=== PATIENT | male | born 1935 | race Caucasian/White ===

== ENCOUNTER → 2017-04-22 | Outpatient (CLI) | payer MEDICARE, OTHER | END | disposition home or self-care (01) | LOC: LAB 08:04 | PROVIDERS: ATTEND Internal Medicine Cardiovascular Disease | DX: E29.1 Testicular hypofunction (principal); R97.20 Elevated prostate specific antigen [PSA]; E55.9 Vitamin D deficiency, unspecified | CPT/HCPCS: 36415; 82306; 84153; 84403 ==

== ENCOUNTER 2018-02-06 18:07 | Inpatient (IN) | payer MEDICARE ==
[~2018-02-06] VITALS: Ht 172.7 cm; Wt 90.5 kg
[2018-02-06 18:53] LABS: Basophils # (auto) 0 uL; Basophils % (auto) 0.6 % (0.0-2.0); Eosinophils # (auto) 0 uL; Eosinophils % (auto) 0.8 % (0.0-7.0); Hematocrit 45.4 % (41.0-53.0); Hemoglobin 15.8 g/dL (13.5-17.5); Lymphocytes # (auto) 0.6 uL; Lymphocytes % (auto) 10.1 % (10.0-50.0); Mean Corpuscular Hemoglobin 33.6 pg (28.0-32.0); Mean Corpuscular Hgb Conc. 34.8 g/dL (32.0-36.0); Mean Corpuscular Volume 96.4 fL (80.0-100.0); Monocytes # (auto) 0.5 uL; Monocytes % (auto) 8.4 % (0.0-12.0); Neutrophils # (auto) 4.6 uL; Neutrophils % (auto) 80.1 % (37.0-80.0); Platelet Count (auto) 227 10^3/uL (140-450); Red Blood Cells 4.71 10^6/uL (4.5-5.90); Red Cell Distribution Width 15.7 % (11.8-14.3); White Blood Cell 5.7 10^3/uL (4.4-10.8)
[2018-02-06 19:05] LABS: Albumin 3.9 g/dL (3.4-5.0); Calcium 9.3 mg/dL (8.5-10.1)
[2018-02-06 19:10] LABS: BUN/Creatinine Ratio 15.7; Bilirubin, Total 1.2 mg/dL (0.2-1.0); Total Protein 8.2 g/dL (6.4-8.2)
[2018-02-06] MEDS ORDERED: SODIUM CHLORIDE 0.9% 500 ML IV ONE (19:39)
[2018-02-06 19:57] LABS: Potassium 2.4 mmol/L (3.5-5.1)
[2018-02-06 20:43] LABS: INR 0.99 (0.9-1.15); Partial Thromboplastin Time 27.3 sec (23.78-33.04); Prothrombin Time 10.6 sec (9.27-12.13)
[2018-02-06] MEDS: POTASSIUM CHL 20MEQ/100ML 100 ML IV SCH ×2 (21:06→22:59)
[2018-02-06] MEDS ORDERED: MAGNESIUM CITRATE SOLUTION 300 ML BTL PO ONE ×2 (21:15→21:45)
[2018-02-06] MEDS ORDERED: cefTRIAXone 1GM/50ML D5W 50 ML IV ONE ×2 (21:15→21:45)
[2018-02-06] MEDS ORDERED: POTA10TA51 PO (23:58)
[2018-02-06] MEDS ORDERED: NIFE60TA59 PO (23:58)
[2018-02-06] MEDS ORDERED: LEV50T PO (23:58)
[2018-02-06] MEDS ORDERED: ATOR20TA PO (23:58)
[2018-02-06] MEDS ORDERED: HYDR12.527 PO (23:58)
[2018-02-07] VITALS (35 sets, daily range): BP systolic 101–181; BP diastolic 54–103
[2018-02-07] MEDS ORDERED: metroNIDAZOLE 500MG/100ML 100 ML IV SCH
[2018-02-07] MEDS: metroNIDAZOLE 500MG/100ML 100 ML IV SCH ×4 (00:48→18:39)
[2018-02-07 06:24] LABS: Basophils # (auto) 0 uL; Basophils % (auto) 0.3 % (0.0-2.0); Eosinophils # (auto) 0 uL; Eosinophils % (auto) 0.5 % (0.0-7.0); Hematocrit 39.6 % (41.0-53.0); Hemoglobin 13.8 g/dL (13.5-17.5); Lymphocytes # (auto) 0.7 uL; Mean Corpuscular Hemoglobin 33.4 pg (28.0-32.0); Mean Corpuscular Volume 95.5 fL (80.0-100.0); Monocytes # (auto) 0.5 uL; Monocytes % (auto) 12.8 % (0.0-12.0); Neutrophils # (auto) 2.9 uL; Neutrophils % (auto) 69.4 % (37.0-80.0); Platelet Count (auto) 194 10^3/uL (140-450); Red Blood Cells 4.14 10^6/uL (4.5-5.90); Red Cell Distribution Width 15.7 % (11.8-14.3); White Blood Cell 4.2 10^3/uL (4.4-10.8)
[2018-02-07 06:34] LABS: Albumin 3.2 g/dL (3.4-5.0); Calcium 8.3 mg/dL (8.5-10.1)
[2018-02-07 06:36] LABS: BUN/Creatinine Ratio 21.3; INR 1.01 (0.9-1.15); Partial Thromboplastin Time 27.3 sec (23.78-33.04); Prothrombin Time 10.8 sec (9.27-12.13)
[2018-02-07 06:45] LABS: Potassium 2.1 mmol/L (3.5-5.1)
[2018-02-07] MEDS ORDERED: SODIUM CHL 0.9% IV ONE (08:15)
[2018-02-07] MEDS ORDERED: ONDANSETRON HCL 4 MG/2 ML VIAL IV PRN (08:15)
[2018-02-07] MEDS ORDERED: MAGNESIUM CITRATE SOLUTION 300 ML BTL PO ONE (08:15)
[2018-02-07] MEDS ORDERED: POTASSIUM CHLORIDE IV ONE ×3 (08:15→20:30)
[2018-02-07] MEDS ORDERED: LIDOCAINE 1% IV ONE ×3 (08:15→20:30)
[2018-02-07] MEDS ORDERED: NS 0.9% IV ONE ×2 (08:30→20:30)
[2018-02-07] MEDS ORDERED: GASTROGRAFIN 120 ML SOL ONE (09:16)
[2018-02-07] MEDS ORDERED: PNEUMOCOCCAL VACC POLYS 25 MCG/0.5 ML VIAL IM ONE (10:00)
[2018-02-07] MEDS ORDERED: PROMETHAZINE HCL 25 MG/ML 1ML IV PRN (11:45)
[2018-02-07] MEDS ORDERED: D5W/SOD CHL 0.45%/KCL 40MEQ 1,000 ML IV SCH (12:45)
[2018-02-07] MEDS ORDERED: MEPERIDINE HCL (50 MG/ML) 1 ML VIAL ONE (14:58)
[2018-02-07] MEDS ORDERED: fentaNYL CITRATE 100 MCG/2 ML VL ONE (14:58)
[2018-02-07] MEDS ORDERED: SUCCINYLCHOLINE CHLORIDE 20 MG/ML 10ML VIAL IV ONE (14:58)
[2018-02-07] MEDS ORDERED: ETOMIDATE (2MG/ML) 20ML VIAL IV ONE (14:59)
[2018-02-07] MEDS ORDERED: DEXAMETHASONE SOD PHOS 10MG/1ML VIAL INJ ONE (14:59)
[2018-02-07] MEDS ORDERED: MIDAZOLAM HCL 1MG/1ML-2 ML VIAL ONE (15:09)
[2018-02-07] MEDS ORDERED: ROCURONIUM 10MG/ML 10ML VIAL IV ONE (15:36)
[2018-02-07] MEDS ORDERED: LEVOFLOXACIN 500MG 100 ML IV ONE (15:37)
[2018-02-07] MEDS ORDERED: MIDAZOLAM HCL 1MG/1ML-2 ML VIAL IV PRN ×2 (16:30→17:15)
[2018-02-07] MEDS: D5W/SOD CHL 0.45%/KCL 40MEQ 1,000 ML IV SCH (16:45)
[2018-02-07] MEDS ORDERED: HYDROmorphone HCL 2 MG/ML VL ONE (16:46)
[2018-02-07] MEDS ORDERED: MIDAZOLAM DRIP 50 mg/50mL 50 ML IV ONE (16:51)
[2018-02-07] MEDS ORDERED: MIDAZOLAM DRIP 50 mg/50mL 50 ML IV SCH (17:00)
[2018-02-07] MEDS ORDERED: fentaNYL Drip 2500mCg/250mlNS 250 ML IV SCH (17:00)
[2018-02-07] MEDS ORDERED: MORPHINE SULFATE 4 MG/ML SYR/VIAL IV PRN (17:15)
[2018-02-07] MEDS ORDERED: LABETALOL HCL 5 MG/ML 4ML SYRINGE IV PRN (17:15)
[2018-02-07] MEDS ORDERED: KETOROLAC TROMETH 30 MG/ML 1ML VIAL IV ONE (17:15)
[2018-02-07] MEDS ORDERED: ePHEDrine SULFATE 50 MG/ML AMP IV PRN (17:15)
[2018-02-07] MEDS ORDERED: ONDANSETRON HCL 4 MG/2 ML VIAL IV ONE (17:15)
[2018-02-07] MEDS ORDERED: HYDROmorphone HCL 2 MG/ML VL IV PRN (17:15)
[2018-02-07] MEDS ORDERED: MORPHINE SULFATE 4 MG/ML SYR/VIAL IV ONE (18:00)
[2018-02-07] MEDS: PIPERACILLIN-TAZO 4.5GM 100 ML IV SCH (21:25)
[2018-02-07 22:54] LABS: Urine Bacteria NONE SEEN /hpf (None Seen); Urine Blood 1+ /uL (Negative); Urine Specific Gravity 1.016 (1.001-1.035); Urine WBC 12 /hpf (0 - 3)
[2018-02-08] VITALS (74 sets, daily range): BP systolic 97–185; BP diastolic 45–104
[2018-02-08] MEDS: metroNIDAZOLE 500MG/100ML 100 ML IV SCH ×5 (00:06→23:58)
[2018-02-08] MEDS ORDERED: VENLAFAXINE HCL 37.5mg XR cap PO SCH (00:15)
[2018-02-08 04:30] LABS: Basophils # (auto) 0 uL; Basophils % (auto) 0.1 % (0.0-2.0); Eosinophils # (auto) 0 uL; Hematocrit 36.3 % (41.0-53.0); Hemoglobin 12.5 g/dL (13.5-17.5); Lymphocytes # (auto) 0.3 uL; Lymphocytes % (auto) 4.7 % (10.0-50.0); Mean Corpuscular Hemoglobin 33.1 pg (28.0-32.0); Mean Corpuscular Hgb Conc. 34.6 g/dL (32.0-36.0); Mean Corpuscular Volume 95.8 fL (80.0-100.0); Monocytes # (auto) 0.3 uL; Monocytes % (auto) 5.5 % (0.0-12.0); Neutrophils # (auto) 5.6 uL; Neutrophils % (auto) 89.7 % (37.0-80.0); Platelet Count (auto) 169 10^3/uL (140-450); Red Blood Cells 3.79 10^6/uL (4.5-5.90); Red Cell Distribution Width 16.3 % (11.8-14.3); White Blood Cell 6.2 10^3/uL (4.4-10.8)
[2018-02-08 04:51] LABS: Albumin 2.5 g/dL (3.4-5.0); Calcium 7.8 mg/dL (8.5-10.1); Potassium 3.2 mmol/L (3.5-5.1)
[2018-02-08 04:53] LABS: BUN/Creatinine Ratio 20.2
[2018-02-08 04:55] LABS: Bilirubin, Total 0.9 mg/dL (0.2-1.0); Total Protein 5.9 g/dL (6.4-8.2)
[2018-02-08] MEDS: PIPERACILLIN-TAZO 4.5GM 100 ML IV SCH ×3 (05:21→21:34)
[2018-02-08] MEDS: D5W/SOD CHL 0.45%/KCL 40MEQ 1,000 ML IV SCH ×3 (05:21→17:37)
[2018-02-08] MEDS ORDERED: POTASSIUM CHL 20MEQ/100ML 200 ML IV ONE (05:56)
[2018-02-08] MEDS: POTASSIUM CHL 20MEQ/100ML 100 ML IV SCH ×5 (06:08→16:53)
[2018-02-08] MEDS ORDERED: LEVOFLOXACIN 500MG 100 ML IV SCH (10:00)
[2018-02-08] MEDS: HYDROmorphone HCL 2 MG/ML VL IV PRN ×2 (21:11→23:58)
[2018-02-09] VITALS (79 sets, daily range): BP systolic 98–180; BP diastolic 49–97
[2018-02-09 04:13] LABS: Calcium 8.4 mg/dL (8.5-10.1)
[2018-02-09 04:15] LABS: BUN/Creatinine Ratio 11.5
[2018-02-09] MEDS: HYDROmorphone HCL 2 MG/ML VL IV PRN ×4 (04:38→22:03)
[2018-02-09 04:54] LABS: Potassium 2.6 mmol/L (3.5-5.1)
[2018-02-09] MEDS ORDERED: POTASSIUM CHL 20MEQ/100ML 100 ML IV ONE (05:35)
[2018-02-09] MEDS: metroNIDAZOLE 500MG/100ML 100 ML IV SCH ×3 (05:37→17:50)
[2018-02-09] MEDS: D5W/SOD CHL 0.45%/KCL 40MEQ 1,000 ML IV SCH ×2 (05:37→18:30)
[2018-02-09] MEDS: PIPERACILLIN-TAZO 4.5GM 100 ML IV SCH ×3 (05:37→22:04)
[2018-02-09] MEDS: POTASSIUM CHL 20MEQ/100ML 100 ML IV SCH ×4 (05:52→10:00)
[2018-02-09] MEDS ORDERED: POTASSIUM CHL 20 Meq TABLET PO ONE ×4 (13:30→18:45)
[2018-02-09] MEDS ORDERED: POTASSIUM CHL 20MEQ/100ML 100 ML IV SCH (14:00)
[2018-02-10] VITALS (22 sets, daily range): BP systolic 94–156; BP diastolic 44–115
[2018-02-10] MEDS: metroNIDAZOLE 500MG/100ML 100 ML IV SCH ×5 (01:00→23:50)
[2018-02-10] MEDS: D5W/SOD CHL 0.45%/KCL 40MEQ 1,000 ML IV SCH ×2 (02:10→13:07)
[2018-02-10 04:00] LABS: Basophils # (auto) 0 uL; Basophils % (auto) 0.5 % (0.0-2.0); Eosinophils # (auto) 0.1 uL; Eosinophils % (auto) 1.7 % (0.0-7.0); Hematocrit 35.7 % (41.0-53.0); Hemoglobin 12.1 g/dL (13.5-17.5); Lymphocytes # (auto) 0.7 uL; Lymphocytes % (auto) 12.6 % (10.0-50.0); Mean Corpuscular Hemoglobin 33.1 pg (28.0-32.0); Mean Corpuscular Hgb Conc. 34.1 g/dL (32.0-36.0); Mean Corpuscular Volume 97.2 fL (80.0-100.0); Monocytes # (auto) 0.3 uL; Monocytes % (auto) 5.2 % (0.0-12.0); Neutrophils # (auto) 4.3 uL; Nucleated Red Blood Cells % 0.1 %; Platelet Count (auto) 152 10^3/uL (140-450); Red Blood Cells 3.67 10^6/uL (4.5-5.90); Red Cell Distribution Width 16.7 % (11.8-14.3); White Blood Cell 5.4 10^3/uL (4.4-10.8)
[2018-02-10 04:22] LABS: Albumin 2.2 g/dL (3.4-5.0); Magnesium 2.1 mg/dL (1.6-2.6); Potassium 3.1 mmol/L (3.5-5.1)
[2018-02-10 04:26] LABS: BUN/Creatinine Ratio 8.2; Bilirubin, Total 0.9 mg/dL (0.2-1.0); Total Protein 5.4 g/dL (6.4-8.2)
[2018-02-10] MEDS: PIPERACILLIN-TAZO 4.5GM 100 ML IV SCH (06:53)
[2018-02-10] MEDS: LEVOTHYROXINE SODIUM 50 MCG TAB PO SCH (06:54)
[2018-02-10] MEDS: HYDROmorphone HCL 2 MG/ML VL IV PRN ×5 (09:23→23:03)
[2018-02-10] MEDS: PIPERACILLIN-TAZOB 3.375GM 100 ML IV SCH ×3 (09:26→20:14)
[2018-02-10] MEDS: POTASSIUM CHL 20MEQ/100ML 100 ML IV SCH ×4 (12:34→21:09)
[2018-02-10] MEDS ORDERED: TIMOLOL MAL 0.5% OPTH(EYE) SOL 5ML EACHEYE ONE (15:30)
[2018-02-10] MEDS ORDERED: LIDOCAINE 1% (LOCAL ANESTH.) PF 5ml SDV ID ONE (15:45)
[2018-02-10] MEDS: ACETAMINOPHEN 650 mg PER 20 mL UD GT PRN (17:15)
[2018-02-10 20:03] LABS: Urine Bacteria NONE SEEN /hpf (None Seen); Urine Blood 1+ /uL (Negative); Urine Hyaline Cast FEW /lpf (0 - 2); Urine Mucus FEW (None Seen); Urine Specific Gravity 1.009 (1.001-1.035); Urine WBC 1 /hpf (0 - 3)
[2018-02-10] MEDS: SODIUM CHLOR 0.9% PF (SALINE LOCK) 10ML VIAL/SYR IV SCH (21:57)
[2018-02-10] MEDS: LATANOPROST 0.005 % OPTH(EYE) SOL 2.5ML EACHEYE SCH (22:27)
[2018-02-11] VITALS (20 sets, daily range): BP systolic 79–156; BP diastolic 49–91
[2018-02-11] MEDS: D5W/SOD CHL 0.45%/KCL 40MEQ 1,000 ML IV SCH ×2 (01:00→11:05)
[2018-02-11] MEDS: PIPERACILLIN-TAZOB 3.375GM 100 ML IV SCH ×4 (01:39→20:21)
[2018-02-11 04:15] LABS: Albumin 2.3 g/dL (3.4-5.0); Calcium 7.8 mg/dL (8.5-10.1); Potassium 3.1 mmol/L (3.5-5.1)
[2018-02-11 04:16] LABS: Basophils # (auto) 0 uL; Basophils % (auto) 0.9 % (0.0-2.0); Eosinophils # (auto) 0 uL; Eosinophils % (auto) 0.7 % (0.0-7.0); Hematocrit 34.7 % (41.0-53.0); Lymphocytes # (auto) 0.4 uL; Lymphocytes % (auto) 16.1 % (10.0-50.0); Mean Corpuscular Hemoglobin 33.8 pg (28.0-32.0); Mean Corpuscular Hgb Conc. 34.5 g/dL (32.0-36.0); Mean Corpuscular Volume 97.9 fL (80.0-100.0); Monocytes # (auto) 0.4 uL; Monocytes % (auto) 13.9 % (0.0-12.0); Neutrophils # (auto) 1.8 uL; Neutrophils % (auto) 68.4 % (37.0-80.0); Nucleated Red Blood Cells % 0.1 %; Platelet Count (auto) 130 10^3/uL (140-450); Red Blood Cells 3.54 10^6/uL (4.5-5.90); Red Cell Distribution Width 16.4 % (11.8-14.3); White Blood Cell 2.7 10^3/uL (4.4-10.8)
[2018-02-11 04:17] LABS: BUN/Creatinine Ratio 7.7
[2018-02-11 04:19] LABS: Bilirubin, Total 0.4 mg/dL (0.2-1.0); Total Protein 5.6 g/dL (6.4-8.2)
[2018-02-11] MEDS: HYDROmorphone HCL 2 MG/ML VL IV PRN ×2 (04:38→08:38)
[2018-02-11] MEDS: metroNIDAZOLE 500MG/100ML 100 ML IV SCH ×3 (05:42→18:15)
[2018-02-11] MEDS: LEVOTHYROXINE SODIUM 50 MCG TAB PO SCH (07:03)
[2018-02-11] MEDS: TIMOLOL MAL 0.5% OPTH(EYE) SOL 5ML EACHEYE SCH (10:01)
[2018-02-11] MEDS: SODIUM CHLOR 0.9% PF (SALINE LOCK) 10ML VIAL/SYR IV SCH ×2 (10:02→22:12)
[2018-02-11] MEDS: POTASSIUM CHL 20MEQ/100ML 100 ML IV SCH ×4 (12:15→22:12)
[2018-02-11] MEDS: SOD CHL 0.9%/ KCL 40MEQ 1,000 ML IV SCH (15:03)
[2018-02-11] MEDS ORDERED: CHOLESTYRAMINE 4 GM POWDER PO ONE (16:00)
[2018-02-11] MEDS: KETOROLAC TROMETH 30 MG/ML 1ML VIAL IV PRN (17:27)
[2018-02-11] MEDS: LATANOPROST 0.005 % OPTH(EYE) SOL 2.5ML EACHEYE SCH (22:14)
[2018-02-12] MEDS: POTASSIUM CHL 20MEQ/100ML 100 ML IV SCH ×2 (00:09→02:00)
[2018-02-12] MEDS: metroNIDAZOLE 500MG/100ML 100 ML IV SCH ×3 (00:09→11:59)
[2018-02-12] MEDS: KETOROLAC TROMETH 30 MG/ML 1ML VIAL IV PRN (01:23)
[2018-02-12] MEDS: PIPERACILLIN-TAZOB 3.375GM 100 ML IV SCH ×4 (02:00→20:13)
[2018-02-12 05:00] VITALS: BP 157/94
[2018-02-12] MEDS: LEVOTHYROXINE SODIUM 50 MCG TAB PO SCH (05:40)
[2018-02-12 08:00] VITALS: BP 125/85
[2018-02-12] MEDS: NIFEdipine ER 30 MG TAB PO SCH (09:22)
[2018-02-12] MEDS: CHOLESTYRAMINE 4 GM POWDER GT SCH (09:23)
[2018-02-12] MEDS: HCTZ 25 MG TAB PO SCH (09:23)
[2018-02-12] MEDS: SODIUM CHLOR 0.9% PF (SALINE LOCK) 10ML VIAL/SYR IV SCH ×2 (09:23→22:00)
[2018-02-12] MEDS: TIMOLOL MAL 0.5% OPTH(EYE) SOL 5ML EACHEYE SCH (09:24)
[2018-02-12] MEDS: SOD CHL 0.9%/ KCL 40MEQ 1,000 ML IV SCH (09:25)
[2018-02-12 12:00] VITALS: BP 125/79
[2018-02-12 19:11] VITALS: BP 114/72
[2018-02-12] MEDS: LATANOPROST 0.005 % OPTH(EYE) SOL 2.5ML EACHEYE SCH (20:41)
[2018-02-12] MEDS: ACETAMINOPHEN 650 mg PER 20 mL UD GT PRN (20:44)
[2018-02-12 22:00] VITALS: BP 124/72
[2018-02-13] MEDS: PIPERACILLIN-TAZOB 3.375GM 100 ML IV SCH ×3 (02:09→13:34)
[2018-02-13] MEDS: SOD CHL 0.9%/ KCL 40MEQ 1,000 ML IV SCH (04:30)
[2018-02-13 05:00] VITALS: BP 146/84
[2018-02-13] MEDS: LEVOTHYROXINE SODIUM 50 MCG TAB PO SCH (05:51)
[2018-02-13 06:57] LABS: Basophils # (auto) 0 uL; Basophils % (auto) 0.9 % (0.0-2.0); Eosinophils # (auto) 0.1 uL; Eosinophils % (auto) 4.8 % (0.0-7.0); Hematocrit 36.3 % (41.0-53.0); Hemoglobin 12.6 g/dL (13.5-17.5); Lymphocytes # (auto) 0.7 uL; Lymphocytes % (auto) 25.9 % (10.0-50.0); Mean Corpuscular Hemoglobin 33.7 pg (28.0-32.0); Mean Corpuscular Hgb Conc. 34.9 g/dL (32.0-36.0); Mean Corpuscular Volume 96.8 fL (80.0-100.0); Monocytes # (auto) 0.3 uL; Monocytes % (auto) 12.3 % (0.0-12.0); Neutrophils # (auto) 1.6 uL; Neutrophils % (auto) 56.1 % (37.0-80.0); Nucleated Red Blood Cells % 0.1 %; Platelet Count (auto) 142 10^3/uL (140-450); Red Blood Cells 3.75 10^6/uL (4.5-5.90); Red Cell Distribution Width 16.1 % (11.8-14.3); White Blood Cell 2.8 10^3/uL (4.4-10.8)
[2018-02-13 07:17] LABS: Albumin 2.2 g/dL (3.4-5.0); Calcium 7.7 mg/dL (8.5-10.1)
[2018-02-13 07:22] LABS: BUN/Creatinine Ratio 10.3; Bilirubin, Total 0.5 mg/dL (0.2-1.0); Total Protein 5.4 g/dL (6.4-8.2)
[2018-02-13 08:47] VITALS: BP 112/74
[2018-02-13] MEDS: TIMOLOL MAL 0.5% OPTH(EYE) SOL 5ML EACHEYE SCH (09:24)
[2018-02-13] MEDS: NIFEdipine ER 30 MG TAB PO SCH (09:24)
[2018-02-13] MEDS: SODIUM CHLOR 0.9% PF (SALINE LOCK) 10ML VIAL/SYR IV SCH (09:24)
[2018-02-13] MEDS: HCTZ 25 MG TAB PO SCH (09:24)
[2018-02-13] MEDS: CHOLESTYRAMINE 4 GM POWDER GT SCH (09:30)
[2018-02-13 12:43] VITALS: BP 153/94
[2018-02-13] MEDS ORDERED: POTASSIUM CHL 20 Meq TABLET PO ONE ×2 (14:00→16:00)
[2018-02-13 16:33] VITALS: BP 112/74
[2018-02-13 17:49] VITALS: BP 148/88
[2018-02-14] MEDS ORDERED: SPIRONOLACTONE 25 MG TAB PO SCH (10:00)
== END 2018-02-13 19:20 | disposition home or self-care (01) | DRG 853 ==
LOC: ER 18:07 → TELE 21:32 → TELE-WESTW 23:35 → ICU WEST 02-07 15:37 → EAST 02-11 18:35 → TELE-EAST 02-11 18:42
PROVIDERS: ADMIT Internal Medicine Cardiovascular Disease; ATTEND Internal Medicine Cardiovascular Disease
PROC: 5A1935Z Respiratory Ventilation, Less than 24 Consecutive Hours (ICD-10-PCS; 2018-02-07)
PROC: 0BH17EZ Insertion of Endotracheal Airway into Trachea, Via Natural or Artificial Opening (ICD-10-PCS; 2018-02-07)
PROC: 0YQ60ZZ Repair Left Inguinal Region, Open Approach (ICD-10-PCS; principal; 2018-02-07 14:55)
DX: A41.9 Sepsis, unspecified organism (principal); G93.41 Metabolic encephalopathy; K56.2 Volvulus; K40.30 Unilateral inguinal hernia, with obstruction, without gangrene, not specified as recurrent; E87.1 Hypo-osmolality and hyponatremia; E86.0 Dehydration; E87.6 Hypokalemia; I10 Essential (primary) hypertension; E78.5 Hyperlipidemia, unspecified; M19.90 Unspecified osteoarthritis, unspecified site; I95.9 Hypotension, unspecified; Z28.21 Immunization not carried out because of patient refusal
CPT/HCPCS: 36415; 36569; 36600; 71045; 74018; 74176; 74250; 80048; 80053; 81001; 82805; 83605; 83735; 83880; 84132; 84484; 85025; 85610; 85730; 86850; 86900; 86901; 87040; 87081; 87493; 93005; 94002; 94003; 96361; 96365; 96375; 97163; A6257; G0378; J0330; J0696; J1100; J1885; J1956; J2001; J2250; J2405; J2543; J3480; J3490

== ENCOUNTER → 2018-02-24 | Outpatient (CLI) | payer MEDICARE ==
[~2018-02-24] MED LIST: ATOR20TA PO; HYDR12.527 PO; LEV50T PO; NIFE60TA59 PO; POTA10TA51 PO
[2018-02-24 12:15] LABS: Basophils # (auto) 0.1 uL; Basophils % (auto) 1.2 % (0.0-2.0); Eosinophils # (auto) 0.1 uL; Eosinophils % (auto) 2.8 % (0.0-7.0); Hemoglobin 14.6 g/dL (13.5-17.5); Lymphocytes # (auto) 0.7 uL; Lymphocytes % (auto) 17.1 % (10.0-50.0); Mean Corpuscular Hemoglobin 33.9 pg (28.0-32.0); Mean Corpuscular Hgb Conc. 33.9 g/dL (32.0-36.0); Mean Corpuscular Volume 100.1 fL (80.0-100.0); Monocytes # (auto) 0.4 uL; Neutrophils # (auto) 2.9 uL; Neutrophils % (auto) 68.9 % (37.0-80.0); Nucleated Red Blood Cells % 0.1 %; Platelet Count (auto) 315 10^3/uL (140-450); Red Cell Distribution Width 16.6 % (11.8-14.3); White Blood Cell 4.2 10^3/uL (4.4-10.8)
[2018-02-24 12:22] LABS: Albumin 3.9 g/dL (3.4-5.0); Potassium 3.5 mmol/L (3.5-5.1)
[2018-02-24 12:28] LABS: BUN/Creatinine Ratio 19.5; Bilirubin, Direct 0.3 mg/dL (0-0.2); Bilirubin, Total 0.9 mg/dL (0.2-1.0); Calcium 9.3 mg/dL (8.5-10.1); Total Protein 8.1 g/dL (6.4-8.2)
== END | disposition home or self-care (01) ==
LOC: Rad HDHVI 10:28
PROVIDERS: ATTEND Internal Medicine Cardiovascular Disease
DX: M16.0 Bilateral primary osteoarthritis of hip (principal); E78.5 Hyperlipidemia, unspecified; E03.9 Hypothyroidism, unspecified; E55.9 Vitamin D deficiency, unspecified; E11.9 Type 2 diabetes mellitus without complications; D51.9 Vitamin B12 deficiency anemia, unspecified; K74.1 Hepatic sclerosis; I10 Essential (primary) hypertension; D64.9 Anemia, unspecified; C61 Malignant neoplasm of prostate
CPT/HCPCS: 36415; 74018; 80048; 80061; 80076; 82306; 83036; 84153; 84403; 84443; 85025

== ENCOUNTER → 2018-03-13 | Outpatient (CLI) | payer MEDICARE ==
[~2018-03-13] MED LIST changes: +TESTOSTERONE CYPIONATE 200 MG/ML 1ML VIAL IM ONE
[2018-03-13 09:13] VITALS: BP 149/79
--- NOTE | 2018-03-13 09:13 | NUR ---
CHF PT TO [facility]F CLINIC FOR MD REYES ORDERED TESTOSTERONE 200MG IM .
[2018-03-13 09:45] VITALS: BP 140/85
--- NOTE | 2018-03-13 09:45 | NUR ---
CHF Discharge Instructions See e-MAR for any mediations given with this visit. TESTOSTERONE 200MG IM R GLUTE. PT TOLERATED WELL. Patient education given on disease process. Patient verbalized understanding. Previous labs reviewed. Patient discharged in stable condition with after care instructions and follow up appointment.
== END | disposition home or self-care (01) ==
LOC: CHF HDHVI 09:14
PROVIDERS: ATTEND Internal Medicine Cardiovascular Disease
DX: E29.1 Testicular hypofunction (principal); M16.0 Bilateral primary osteoarthritis of hip; E03.9 Hypothyroidism, unspecified; K40.90 Unilateral inguinal hernia, without obstruction or gangrene, not specified as recurrent; R97.20 Elevated prostate specific antigen [PSA]; E55.9 Vitamin D deficiency, unspecified; K74.1 Hepatic sclerosis; C61 Malignant neoplasm of prostate; G93.41 Metabolic encephalopathy; H40.9 Unspecified glaucoma; D51.9 Vitamin B12 deficiency anemia, unspecified; A41.9 Sepsis, unspecified organism; I70.0 Atherosclerosis of aorta; E11.9 Type 2 diabetes mellitus without complications; Z79.01 Long term (current) use of anticoagulants
CPT/HCPCS: 96372; G0463; J1071

== ENCOUNTER → 2018-04-21 | Outpatient (CLI) | payer MEDICARE ==
[~2018-04-21] MED LIST changes: -TESTOSTERONE CYPIONATE 200 MG/ML 1ML VIAL IM ONE
[2018-04-21 12:42] LABS: BUN/Creatinine Ratio 17.9; Calcium 9.1 mg/dL (8.5-10.1); Potassium 3.4 mmol/L (3.5-5.1)
== END | disposition home or self-care (01) ==
LOC: LAB 11:07
PROVIDERS: ATTEND Internal Medicine Cardiovascular Disease
DX: I10 Essential (primary) hypertension (principal); E87.5 Hyperkalemia
CPT/HCPCS: 36415; 80048

== ENCOUNTER → 2018-05-02 | Outpatient (CLI) | payer MEDICARE ==
[2018-05-02 12:19] LABS: BUN/Creatinine Ratio 19.7; Calcium 8.6 mg/dL (8.5-10.1); Potassium 3.3 mmol/L (3.5-5.1)
== END | disposition home or self-care (01) ==
LOC: CHF HDHVI 09:21
PROVIDERS: ATTEND Internal Medicine Cardiovascular Disease
DX: I10 Essential (primary) hypertension (principal)
CPT/HCPCS: 36415; 80048

== ENCOUNTER → 2018-05-19 | Outpatient (CLI) | payer MEDICARE ==
[2018-05-19 12:24] LABS: Calcium 8.9 mg/dL (8.5-10.1); Potassium 3.5 mmol/L (3.5-5.1)
[2018-05-19 12:25] LABS: BUN/Creatinine Ratio 20.7
== END | disposition home or self-care (01) ==
LOC: LAB 09:07
PROVIDERS: ATTEND Internal Medicine Cardiovascular Disease
DX: E87.6 Hypokalemia (principal); I10 Essential (primary) hypertension
CPT/HCPCS: 36415; 80048

== ENCOUNTER → 2018-07-21 | Outpatient (CLI) | payer MEDICARE ==
[~2018-07-21] VITALS: Ht 172.7 cm; Wt 83.9 kg
[~2018-07-21] MED LIST changes: +ADENOSINE 70 MG in GIVE UN-DILUTED 0 ML IV ONE; +ADENOSINE 90 MG/30 ML INJ IV ONE
[2018-07-21 16:30] LABS: BUN/Creatinine Ratio 24.3; Calcium 9.4 mg/dL (8.5-10.1); Magnesium 2.7 mg/dL (1.6-2.6); Potassium 3.5 mmol/L (3.5-5.1)
== END | disposition home or self-care (01) ==
LOC: Rad HDHVI 08:28
PROVIDERS: ATTEND Internal Medicine Cardiovascular Disease
DX: I07.1 Rheumatic tricuspid insufficiency (principal); E03.9 Hypothyroidism, unspecified; D51.9 Vitamin B12 deficiency anemia, unspecified; I10 Essential (primary) hypertension; E87.6 Hypokalemia; E78.5 Hyperlipidemia, unspecified; E78.00 Pure hypercholesterolemia, unspecified; N28.9 Disorder of kidney and ureter, unspecified; I27.20 Pulmonary hypertension, unspecified; R00.2 Palpitations; Z79.899 Other long term (current) drug therapy
CPT/HCPCS: 36415; 78452; 80048; 82306; 83735; 93005; 93306; 96374; 96375; A9500; J0153

== ENCOUNTER → 2018-08-08 | Outpatient (CLI) | payer MEDICARE ==
[~2018-08-08] MED LIST changes: -ADENOSINE 70 MG in GIVE UN-DILUTED 0 ML IV ONE; -ADENOSINE 90 MG/30 ML INJ IV ONE; -HYDR12.527 PO; +HYDR12.55 PO
== END | disposition home or self-care (01) ==
LOC: LAB 08:50
PROVIDERS: ATTEND Internal Medicine Cardiovascular Disease
DX: E87.6 Hypokalemia (principal)
CPT/HCPCS: 36415; 84132

== ENCOUNTER → 2018-08-28 | Outpatient (CLI) | payer MEDICARE ==
[~2018-08-28] MED LIST changes: +HYDR12.527 PO; -HYDR12.55 PO
[2018-08-28 12:59] LABS: Magnesium 2.7 mg/dL (1.6-2.6); Potassium 3.5 mmol/L (3.5-5.1)
== END | disposition home or self-care (01) ==
LOC: LAB 08:52
PROVIDERS: ATTEND Internal Medicine Cardiovascular Disease
DX: E87.6 Hypokalemia (principal); E83.40 Disorders of magnesium metabolism, unspecified; I10 Essential (primary) hypertension
CPT/HCPCS: 36415; 83735; 84132

== ENCOUNTER → 2018-09-23 | Outpatient (CLI) | payer MEDICARE ==
[2018-09-23 13:00] LABS: Potassium 3.2 mmol/L (3.5-5.1)
[2018-09-23 13:04] LABS: BUN/Creatinine Ratio 21.8; Calcium 9.2 mg/dL (8.5-10.1)
== END | disposition home or self-care (01) ==
LOC: LAB 09:31
PROVIDERS: ATTEND Internal Medicine Cardiovascular Disease
DX: E87.6 Hypokalemia (principal)
CPT/HCPCS: 36415; 80048

== ENCOUNTER → 2018-10-06 | Outpatient (CLI) | payer MEDICARE ==
[~2018-10-06] MED LIST changes: -HYDR12.527 PO; +HYDR12.55 PO
== END | disposition home or self-care (01) ==
LOC: LAB 09:15
PROVIDERS: ATTEND Internal Medicine Cardiovascular Disease
DX: E87.6 Hypokalemia (principal)
CPT/HCPCS: 36415; 84132

== ENCOUNTER → 2018-11-05 | Outpatient (CLI) | payer MEDICARE ==
[~2018-11-05] VITALS: Ht 30.5 cm; Wt 0.5 kg
[~2018-11-05] MED LIST changes: +TESTOSTERONE CYPIONATE 200 MG/ML 1ML VIAL IM ONE
[2018-11-05 09:10] VITALS: BP 143/86
--- NOTE | 2018-11-05 09:10 | NUR ---
CHF PT IN CLINIC FOR TESTOSTERONE INJECTION. A/O X 3 0 DISTRESS, VSS
[2018-11-05 09:40] VITALS: BP 132/93
--- NOTE | 2018-11-05 09:40 | NUR ---
Discharge Instructions See e-MAR for any mediations given with this visit. Patient education given on disease process. Patient verbalized understanding. Previous labs reviewed. Patient discharged in stable condition with after care instructions and follow up appointment. MEDICATIONS TESTOSTERONE IM RIGHT GLUTE
[2018-11-05 11:43] LABS: BUN/Creatinine Ratio 16.9; Calcium 9.2 mg/dL (8.5-10.1); Potassium 3.6 mmol/L (3.5-5.1)
== END | disposition home or self-care (01) ==
LOC: CHF HDHVI 09:10
PROVIDERS: ATTEND Internal Medicine Cardiovascular Disease
DX: E29.1 Testicular hypofunction (principal); I10 Essential (primary) hypertension
CPT/HCPCS: 36415; 80048; 96372; G0463; J1071

== ENCOUNTER → 2018-11-20 | Outpatient (CLI) | payer MEDICARE ==
--- NOTE | 2018-11-20 08:55 | NUR ---
PT. TO CLINIC FOR IM INJECTION AND MED REC/ LAB REVIEW PER MD ORDER. ORDERS RECEIVED AND CARRIED OUT.
[2018-11-20 08:56] VITALS: BP 134/86
--- NOTE | 2018-11-20 09:32 | NUR ---
MEDS: PT. MEDICATED WITH TESTOSTERONE 200MG IM PER MD ORDER.
[2018-11-20 09:40] VITALS: BP 148/88
--- NOTE | 2018-11-20 09:45 | NUR ---
Discharge Instructions See e-MAR for any mediations given with this visit. Patient education given on disease process. Patient verbalized understanding. Previous labs reviewed. Patient discharged in stable condition with after care instructions and follow up appointment. PT. TO RTC 12/04/18 AT 0850 FOR LABS AND MEDS PER MD ORDER. RECENT ECHO AND LABS REVIEWED WITH PT, WHO ALSO HAD QUESTIONS REGARDING POSSIBLE MEDS FOR ED. PT. HAS APPT WITH DR. REYES ON 12/09 AND THIS RN WILL ASSIST PT. THROUGH THIS PASSAGE.
== END | disposition home or self-care (01) ==
LOC: CHF HDHVI 08:56
PROVIDERS: ATTEND Internal Medicine Cardiovascular Disease
DX: E29.1 Testicular hypofunction (principal); I10 Essential (primary) hypertension
CPT/HCPCS: 96372; G0463; J1071

== ENCOUNTER → 2018-12-04 | Outpatient (CLI) | payer MEDICARE ==
[~2018-12-04] MED LIST changes: -TESTOSTERONE CYPIONATE 200 MG/ML 1ML VIAL IM ONE
[2018-12-04 12:12] LABS: Eosinophils # (auto) 0.1 uL; Hemoglobin 16.2 g/dL (13.5-17.5); Lymphocytes # (auto) 0.9 uL; Monocytes # (auto) 0.3 uL; Neutrophils # (auto) 0.9 uL; White Blood Cell 2.3 10^3/uL (4.4-10.8)
[2018-12-04 12:15] LABS: Basophils # (auto) 0.1 uL; Basophils % (auto) 2.6 % (0.0-2.0); Eosinophils % (auto) 6.3 % (0.0-7.0); Hematocrit 47.8 % (41.0-53.0); Lymphocytes % (auto) 37.5 % (10.0-50.0); Mean Corpuscular Hemoglobin 34.1 pg (28.0-32.0); Mean Corpuscular Hgb Conc. 33.9 g/dL (32.0-36.0); Mean Corpuscular Volume 100.5 fL (80.0-100.0); Monocytes % (auto) 12.4 % (0.0-12.0); Neutrophils % (auto) 41.2 % (37.0-80.0); Nucleated Red Blood Cells % 0.2 %; Platelet Count (auto) 165 10^3/uL (140-450); Red Blood Cells 4.76 10^6/uL (4.5-5.90); Red Cell Distribution Width 15.6 % (11.8-14.3)
[2018-12-04 12:26] LABS: Potassium 3.9 mmol/L (3.5-5.1)
[2018-12-04 12:37] LABS: Albumin 3.7 g/dL (3.4-5.0); BUN/Creatinine Ratio 16.3; Bilirubin, Total 0.7 mg/dL (0.2-1.0); Calcium 8.8 mg/dL (8.5-10.1); Total Protein 7.3 g/dL (6.4-8.2)
== END | disposition home or self-care (01) ==
LOC: CHF HDHVI 09:03
PROVIDERS: ATTEND Internal Medicine Cardiovascular Disease
DX: D64.9 Anemia, unspecified (principal); E29.1 Testicular hypofunction; I10 Essential (primary) hypertension
CPT/HCPCS: 36415; 80053; 84403; 85025

== ENCOUNTER → 2019-01-02 | Outpatient (CLI) | payer MEDICARE ==
[2019-01-02 12:10] LABS: Calcium 8.8 mg/dL (8.5-10.1); Potassium 3.9 mmol/L (3.5-5.1)
== END | disposition home or self-care (01) ==
LOC: LAB 08:47
PROVIDERS: ATTEND Internal Medicine Cardiovascular Disease
DX: I10 Essential (primary) hypertension (principal)
CPT/HCPCS: 36415; 80048

== ENCOUNTER → 2019-02-02 | Outpatient (CLI) | payer MEDICARE ==
[2019-02-02 12:27] LABS: Potassium 3.9 mmol/L (3.5-5.1)
[2019-02-02 12:41] LABS: BUN/Creatinine Ratio 22.6; Calcium 8.8 mg/dL (8.5-10.1)
== END | disposition home or self-care (01) ==
LOC: LAB 09:04
PROVIDERS: ATTEND Internal Medicine Cardiovascular Disease
DX: E78.6 Lipoprotein deficiency (principal)
CPT/HCPCS: 36415; 80048

== ENCOUNTER → 2019-03-18 | Outpatient (CLI) | payer MEDICARE ==
[~2019-03-18] MED LIST changes: +NIFE1TAB30 PO; -NIFE60TA59 PO
== END | disposition home or self-care (01) ==
LOC: Rad HDHVI 12:50
PROVIDERS: ATTEND Internal Medicine Cardiovascular Disease
DX: I70.0 Atherosclerosis of aorta (principal); M41.80 Other forms of scoliosis, site unspecified; M54.5 Low back pain; M54.2 Cervicalgia; M25.511 Pain in right shoulder
CPT/HCPCS: 71046

== ENCOUNTER → 2019-04-02 | Outpatient (CLI) | payer MEDICARE ==
[~2019-04-02] VITALS: Ht 30.5 cm; Wt 0.5 kg
[~2019-04-02] MED LIST changes: +TESTOSTERONE CYPIONATE 200 MG/ML 1ML VIAL IM ONE
[2019-04-02 08:10] VITALS: BP 116/78
[2019-04-02 08:50] VITALS: BP 152/85
--- NOTE | 2019-04-02 08:50 | NUR ---
Discharge Instructions See e-MAR for any mediations given with this visit. Patient education given on disease process. Patient verbalized understanding. Previous labs reviewed. Patient discharged in stable condition with after care instructions and follow up appointment. MEDICATIONS TESTOSTERONE 200 MG IM RIGHT GLUTE LOT # [id number] EXP 06/29
[2019-04-02 12:10] LABS: BUN/Creatinine Ratio 16.4; Potassium 3.7 mmol/L (3.5-5.1)
== END | disposition home or self-care (01) ==
LOC: CHF HDHVI 08:11
PROVIDERS: ATTEND Internal Medicine Cardiovascular Disease
DX: E29.1 Testicular hypofunction (principal); I10 Essential (primary) hypertension
CPT/HCPCS: 36415; 80048; 96372; G0463; J1071

== ENCOUNTER → 2019-07-27 | Outpatient (CLI) | payer MEDICARE ==
[~2019-07-27] MED LIST changes: -TESTOSTERONE CYPIONATE 200 MG/ML 1ML VIAL IM ONE
[2019-07-27 12:05] LABS: Basophils # (auto) 0 10 ^3/uL (0-0.2); Basophils % (auto) 1.5 % (0.0-2.0); Eosinophils # (auto) 0.2 10 ^3/uL (0-0.8); Eosinophils % (auto) 7.5 % (0.0-7.0); Hematocrit 42.8 % (41.0-53.0); Hemoglobin 14.5 g/dL (13.5-17.5); Lymphocytes # (auto) 1.1 10 ^3/uL (0.4-5.4); Lymphocytes % (auto) 41.9 % (10.0-50.0); Mean Corpuscular Hemoglobin 32.8 pg (28.0-32.0); Mean Corpuscular Hgb Conc. 33.8 g/dL (32.0-36.0); Mean Corpuscular Volume 96.9 fL (80.0-100.0); Monocytes # (auto) 0.3 10 ^3/uL (0-1.3); Neutrophils % (auto) 38.1 % (37.0-80.0); Nucleated Red Blood Cells % 0.1 %; Platelet Count (auto) 160 10^3/uL (140-450); Red Blood Cells 4.42 10^6/uL (4.5-5.90); Red Cell Distribution Width 14.3 % (11.8-14.3); Urine Blood Negative /uL (Negative); Urine Specific Gravity 1.015 (1.001-1.035); White Blood Cell 2.6 10^3/uL (4.4-10.8)
[2019-07-27 12:22] LABS: Free T4 (Free Thyroxine) 1.35 ng/dL (0.89-1.76)
[2019-07-27 12:23] LABS: Potassium 3.5 mmol/L (3.5-5.1); Prostate Specific Antigen 1.68 ng/mL (0.0-4.0)
[2019-07-27 12:25] LABS: T3 Total 0.75 ng/mL (0.60-1.81)
[2019-07-27 12:38] LABS: Albumin 3.9 g/dL (3.4-5.0); BUN/Creatinine Ratio 20.9; Bilirubin, Total 0.8 mg/dL (0.2-1.0); Calcium 9.4 mg/dL (8.5-10.1); Total Protein 7.7 g/dL (6.4-8.2)
== END | disposition home or self-care (01) ==
LOC: LAB 08:13
PROVIDERS: ATTEND Internal Medicine Cardiovascular Disease
DX: E03.9 Hypothyroidism, unspecified (principal); K90.9 Intestinal malabsorption, unspecified; C61 Malignant neoplasm of prostate; E29.1 Testicular hypofunction; N39.0 Urinary tract infection, site not specified; I50.9 Heart failure, unspecified; D51.9 Vitamin B12 deficiency anemia, unspecified; Z79.899 Other long term (current) drug therapy
CPT/HCPCS: 36415; 80053; 80061; 81003; 82306; 82607; 83036; 83880; 84153; 84403; 84439; 84443; 84480; 85025

== ENCOUNTER → 2019-08-19 | Outpatient (CLI) | payer MEDICARE | END | disposition home or self-care (01) | LOC: Rad HDHVI 10:16 | PROVIDERS: ATTEND Internal Medicine Cardiovascular Disease | DX: M47.817 Spondylosis without myelopathy or radiculopathy, lumbosacral region (principal); M48.061 Spinal stenosis, lumbar region without neurogenic claudication; M25.78 Osteophyte, vertebrae; M41.86 Other forms of scoliosis, lumbar region; K40.90 Unilateral inguinal hernia, without obstruction or gangrene, not specified as recurrent; M16.0 Bilateral primary osteoarthritis of hip; M81.0 Age-related osteoporosis without current pathological fracture; M43.8X6 Other specified deforming dorsopathies, lumbar region; M47.818 Spondylosis without myelopathy or radiculopathy, sacral and sacrococcygeal region; N40.0 Benign prostatic hyperplasia without lower urinary tract symptoms; I67.82 Cerebral ischemia; I67.2 Cerebral atherosclerosis; I63.9 Cerebral infarction, unspecified | CPT/HCPCS: 70450; 72131; 72192 ==

== ENCOUNTER → 2019-08-28 | Outpatient (CLI) | payer MEDICARE | END | disposition home or self-care (01) | LOC: Rad HDHVI 09:52 | PROVIDERS: ATTEND Internal Medicine Cardiovascular Disease | DX: I10 Essential (primary) hypertension (principal); R00.2 Palpitations; R06.2 Wheezing | CPT/HCPCS: 93306 ==

== ENCOUNTER → 2019-09-04 | Outpatient (CLI) | payer MEDICARE ==
[~2019-09-04] VITALS: Ht 172.7 cm; Wt 78.9 kg
[~2019-09-04] MED LIST changes: +ADENOSINE 66 MG in GIVE UN-DILUTED 0 ML IV ONE; +ADENOSINE 90 MG/30 ML INJ IV ONE
== END | disposition home or self-care (01) ==
LOC: Rad HDHVI 08:56
PROVIDERS: ATTEND Internal Medicine Cardiovascular Disease
DX: I10 Essential (primary) hypertension (principal); E78.00 Pure hypercholesterolemia, unspecified; N40.0 Benign prostatic hyperplasia without lower urinary tract symptoms
CPT/HCPCS: 78452; 93005; 96374; 96375; A9500; J0153

== ENCOUNTER → 2019-10-13 | Emergency (ER) | payer MEDICARE ==
[~2019-10-13] VITALS: Ht 170.2 cm; Wt 81.6 kg
[~2019-10-13] MED LIST changes: -ADENOSINE 66 MG in GIVE UN-DILUTED 0 ML IV ONE; -ADENOSINE 90 MG/30 ML INJ IV ONE; +POTASSIUM EFFERVESENT TAB 25 MEQ PO ONE
[2019-10-13 09:27] LABS: Basophils # (auto) 0.1 10 ^3/uL (0-0.2); Basophils % (auto) 2.4 % (0.0-2.0); Eosinophils # (auto) 0.1 10 ^3/uL (0-0.8); Eosinophils % (auto) 2.9 % (0.0-7.0); Hematocrit 47.6 % (41.0-53.0); Hemoglobin 15.7 g/dL (13.5-17.5); Lymphocytes # (auto) 0.5 10 ^3/uL (0.4-5.4); Lymphocytes % (auto) 14.1 % (10.0-50.0); Mean Corpuscular Hemoglobin 32.8 pg (28.0-32.0); Mean Corpuscular Volume 99.5 fL (80.0-100.0); Monocytes # (auto) 0.3 10 ^3/uL (0-1.3); Monocytes % (auto) 7.7 % (0.0-12.0); Neutrophils # (auto) 2.7 10 ^3/uL (1.6-8.6); Neutrophils % (auto) 72.9 % (37.0-80.0); Nucleated Red Blood Cells % 0.7 %; Platelet Count (auto) 143 10^3/uL (140-450); Red Blood Cells 4.78 10^6/uL (4.5-5.90); Red Cell Distribution Width 14.6 % (11.8-14.3); White Blood Cell 3.7 10^3/uL (4.4-10.8)
[2019-10-13 10:23] LABS: Albumin 3.9 g/dL (3.4-5.0); Anion Gap 5 (5-15); Blood Urea Nitrogen 29 mg/dL (7-18); Calcium 9.1 mg/dL (8.5-10.1); Carbon Dioxide 30 mmol/L (21-32); Chloride 103 mmol/L (98-107); Glucose 98 mg/dL (74-106); Magnesium 2.7 mg/dL (1.6-2.6); Sodium 138 mmol/L (136-145)
[2019-10-13 10:29] LABS: Urine WBC None Seen /hpf (0 - 3)
[2019-10-13 10:31] LABS: Alanine Aminotransferase 19 U/L (16-61); Alkaline Phosphatase 76 U/L (45-117); Aspartate Aminotransferase 18 U/L (15-37); BUN/Creatinine Ratio 19.7; Bilirubin, Total 0.8 mg/dL (0.2-1.0); GFR African American 59 mL/min; GFR Non-African American 49 mL/min; Total Protein 7.7 g/dL (6.4-8.2)
[2019-10-13 10:38] LABS: Urine Bacteria FEW /hpf (None Seen); Urine Blood Negative /uL (Negative); Urine Specific Gravity 1.013 (1.001-1.035)
[2019-10-13 11:05] VITALS: BP 98/62
== END | disposition home or self-care (01) ==
LOC: EDUNIT# 07:17 → ER 07:27 → EDBD 07:27
DX: M25.552 Pain in left hip (principal); E87.6 Hypokalemia; M19.90 Unspecified osteoarthritis, unspecified site; E78.5 Hyperlipidemia, unspecified; I10 Essential (primary) hypertension; R42 Dizziness and giddiness
CPT/HCPCS: 36415; 70450; 71045; 73700; 80053; 81001; 83735; 84443; 84484; 85025; 93005

== ENCOUNTER → 2019-10-14 | Outpatient (CLI) | payer MEDICARE ==
[~2019-10-14] MED LIST changes: -POTASSIUM EFFERVESENT TAB 25 MEQ PO ONE
[2019-10-14 16:29] LABS: BUN/Creatinine Ratio 20.9; Calcium 9.6 mg/dL (8.5-10.1); Potassium 3.8 mmol/L (3.5-5.1)
== END | disposition home or self-care (01) ==
LOC: LAB 12:03
PROVIDERS: ATTEND Internal Medicine Cardiovascular Disease
DX: I10 Essential (primary) hypertension (principal)
CPT/HCPCS: 36415; 80048

== ENCOUNTER → 2019-10-19 | Outpatient (CLI) | payer MEDICARE ==
[2019-10-19 15:57] LABS: BUN/Creatinine Ratio 18.6; Calcium 8.9 mg/dL (8.5-10.1); Potassium 3.4 mmol/L (3.5-5.1)
== END | disposition home or self-care (01) ==
LOC: LAB 11:06
PROVIDERS: ATTEND Internal Medicine Cardiovascular Disease
DX: I10 Essential (primary) hypertension (principal)
CPT/HCPCS: 36415; 80048

== ENCOUNTER → 2019-10-30 | Outpatient (CLI) | payer MEDICARE ==
--- NOTE | 2019-10-30 08:15 | NUR ---
PT. TO CLINIC FOR LAB REDRAW AND PT. EDUCATION RE: HYPOKALEMIA AND MED REC CHANGES FOR B/P AND DIURETIC MEDS. PT. HAS BEEN TAKING PROVARDIA XL 90MG PRN WITH LAST DOSE 2 DAYS AGO FOR SBP> 180. PT. HAS TAKEN HYDROCHLOROTHIDONE LAST DOSE 3 DAYS AGO, FOR LEG SWELLING. THIS RN WILL CALL PT AFTER LAB RESULTS FOR MED REC CHANGES PER DR. REYES.
--- NOTE | 2019-10-30 08:40 | NUR ---
Discharge Instructions See e-MAR for any mediations given with this visit. Patient education given on disease process. Patient verbalized understanding. Previous labs reviewed. Patient discharged in stable condition with after care instructions and follow up appointment. THIS RN WILL CALL PT. LATER TODAY WITH RESULTS AND FURTHER ORDERS.
--- NOTE | 2019-10-30 16:30 | NUR ---
LABS: K+ RESULTS OF 3.[address] REYES WITH MED REC OF DIURETICS AND B/P MEDS REVIEWED WITH DR. REYES. PT. IS TO CONTINUE KDUR 20 MEQ TID, AND NEW RX FOR PROCARDIA 30MG XL Q DAY TO BE TAKEN.
--- NOTE | 2019-10-30 16:45 | NUR ---
LAB RESULTS CALLED TO PT. AND WITH INSTRUCTIONS TO TAKE 20 MEQ POTASSIUM TID OF WHICH 20 MEQ WILL BE IN POWDER FORM SAMPLES FROM DR. REYES THAT PT. HAS ON HAND. HOME HEALTH TO REDRAW K+ IN 10 DAYS. NEW RX FOR PROCARDIA 30MG XL CALLED IN TO [facility] [place] WITH INSTRUCTIONS TO PT. PT. ALSO TO DO DAILY WTS. AND JOURNAL THEM FOR MD FOLLOW UP. PT. UNDERSTANDS TO START PROCARDIA IN AM., AND WILL FOLLOW UP WITH CLINIC WITH ANY CONCERNS.
== END | disposition home or self-care (01) ==
LOC: LAB 08:38
PROVIDERS: ATTEND Internal Medicine Cardiovascular Disease
DX: E87.6 Hypokalemia (principal)
CPT/HCPCS: 36415; 84132; G0463

== ENCOUNTER → 2019-11-18 | Outpatient (CLI) | payer MEDICARE ==
[2019-11-18 16:00] LABS: BUN/Creatinine Ratio 21.8; Calcium 8.9 mg/dL (8.5-10.1); Potassium 4.5 mmol/L (3.5-5.1)
== END | disposition home or self-care (01) ==
LOC: LAB 12:55
PROVIDERS: ATTEND Internal Medicine Cardiovascular Disease
DX: E78.6 Lipoprotein deficiency (principal)
CPT/HCPCS: 36415; 80048

== ENCOUNTER → 2019-12-24 | Outpatient (CLI) | payer MEDICARE | END | disposition home or self-care (01) | LOC: LAB 09:43 | PROVIDERS: ATTEND Internal Medicine Cardiovascular Disease | DX: E87.6 Hypokalemia (principal) | CPT/HCPCS: 36415; 84132 ==

== ENCOUNTER → 2020-01-01 | Outpatient (CLI) | payer MEDICARE ==
[2020-01-01 11:48] LABS: Basophils # (auto) 0.1 10 ^3/uL (0-0.2); Eosinophils # (auto) 0.2 10 ^3/uL (0-0.8); Eosinophils % (auto) 5.6 % (0.0-7.0); Hematocrit 43.7 % (41.0-53.0); Hemoglobin 14.6 g/dL (13.5-17.5); Lymphocytes # (auto) 0.9 10 ^3/uL (0.4-5.4); Lymphocytes % (auto) 28.6 % (10.0-50.0); Mean Corpuscular Hemoglobin 32.4 pg (28.0-32.0); Mean Corpuscular Hgb Conc. 33.5 g/dL (32.0-36.0); Mean Corpuscular Volume 96.9 fL (80.0-100.0); Monocytes # (auto) 0.4 10 ^3/uL (0-1.3); Monocytes % (auto) 13.3 % (0.0-12.0); Neutrophils # (auto) 1.6 10 ^3/uL (1.6-8.6); Neutrophils % (auto) 50.5 % (37.0-80.0); Platelet Count (auto) 156 10^3/uL (140-450); Red Blood Cells 4.51 10^6/uL (4.5-5.90); Red Cell Distribution Width 14.7 % (11.8-14.3); White Blood Cell 3.1 10^3/uL (4.4-10.8)
[2020-01-01 12:08] LABS: Calcium 9.2 mg/dL (8.5-10.1); Potassium 4.2 mmol/L (3.5-5.1)
== END | disposition home or self-care (01) ==
LOC: LAB 10:57
PROVIDERS: ATTEND Internal Medicine Cardiovascular Disease
DX: I10 Essential (primary) hypertension (principal); D64.9 Anemia, unspecified
CPT/HCPCS: 36415; 80048; 85025

== ENCOUNTER 2020-01-07 07:53 | Inpatient (IN) | payer MEDICARE ==
[~2020-01-07] VITALS: Ht 172.7 cm; Wt 79.6 kg
[2020-01-07] MEDS ORDERED: ASPirin 81 mg TAB PO ONE (08:15)
[2020-01-07] MEDS ORDERED: NITROGLYCERIN 0.4 MG SL TAB SL ONE (08:15)
[2020-01-07 08:43] LABS: Basophils # (auto) 0.1 10 ^3/uL (0-0.2); Basophils % (auto) 2.6 % (0.0-2.0); Eosinophils # (auto) 0.3 10 ^3/uL (0-0.8); Eosinophils % (auto) 9.9 % (0.0-7.0); Hematocrit 44.8 % (41.0-53.0); Hemoglobin 14.9 g/dL (13.5-17.5); Lymphocytes # (auto) 0.9 10 ^3/uL (0.4-5.4); Lymphocytes % (auto) 34.4 % (10.0-50.0); Mean Corpuscular Hemoglobin 32.2 pg (28.0-32.0); Mean Corpuscular Hgb Conc. 33.2 g/dL (32.0-36.0); Mean Corpuscular Volume 96.7 fL (80.0-100.0); Monocytes # (auto) 0.3 10 ^3/uL (0-1.3); Monocytes % (auto) 11.8 % (0.0-12.0); Neutrophils # (auto) 1.1 10 ^3/uL (1.6-8.6); Neutrophils % (auto) 41.3 % (37.0-80.0); Nucleated Red Blood Cells % 0.1 %; Platelet Count (auto) 166 10^3/uL (140-450); Red Blood Cells 4.63 10^6/uL (4.5-5.90); Red Cell Distribution Width 15.2 % (11.8-14.3); White Blood Cell 2.6 10^3/uL (4.4-10.8)
[2020-01-07 08:59] LABS: INR 1.06 (0.9-1.15); Partial Thromboplastin Time 27.3 sec (23.0-31.2)
[2020-01-07 09:02] LABS: Albumin 3.4 g/dL (3.4-5.0)
[2020-01-07 09:08] LABS: BUN/Creatinine Ratio 17.6; Bilirubin, Total 0.6 mg/dL (0.2-1.0)
[2020-01-07] MEDS ORDERED: ENOXAPARIN SOD 80 MG/0.8ML SYRINGE SC ONE (09:30)
[2020-01-07] MEDS ORDERED: ACETAMINOPHEN 500 MG TAB PO PRN (11:30)
[2020-01-07] MEDS ORDERED: TEMAZEPAM 15 MG CAP PO PRN (11:30)
[2020-01-07] MEDS ORDERED: MORPHINE SULF INJ 2 MG/ML SYRINGE 1ML IV PRN (11:30)
[2020-01-07] MEDS ORDERED: LACTULOSE 20Gm/30ML SOLN PO PRN (11:30)
[2020-01-07] MEDS ORDERED: PROMETHAZINE HCL 25 MG/ML 1ML IV PRN (11:30)
[2020-01-07] MEDS ORDERED: NITROGLYCERIN 0.4 MG SL TAB SL PRN (11:30)
[2020-01-07] MEDS ORDERED: HEPARIN DRIP/D5W 100UNITS/ML 250 ML IV ONE (12:25)
[2020-01-07] MEDS ORDERED: HEPARIN DRIP/D5W 100UNITS/ML 250 ML IV SCH (12:30)
[2020-01-07] MEDS ORDERED: HEPARIN SODIUM (PORCINE) 5000 UNITS/ML 1ML VIAL IV ONE (12:30)
[2020-01-07] MEDS: SODIUM CHLORIDE 0.9% 1,000 ML IV SCH (13:12)
[2020-01-07] MEDS ORDERED: NIFEdipine ER 30 MG TAB PO ONE (16:45)
[2020-01-07 20:07] LABS: INR 1.13 (0.9-1.15)
[2020-01-07 20:14] LABS: Partial Thromboplastin Time 105.9 sec (23.0-31.2)
[2020-01-07] MEDS ORDERED: [UNRECOGNIZED DRUG - CODE] EACHEYE (21:46)
[2020-01-07] MEDS ORDERED: FINA5TAB4 PO (21:46)
[2020-01-07] MEDS ORDERED: LATA0.0020 EACHEYE (21:46)
[2020-01-07] MEDS ORDERED: CHLO50TA PO (21:46)
[2020-01-07] MEDS ORDERED: ENOXAPARIN SOD 80 MG/0.8ML SYRINGE SC SCH (22:00)
[2020-01-07] MEDS: FAMOTIDINE 20 MG TAB PO SCH (23:46)
[2020-01-07] MEDS: METOPROLOL TARTRATE 25 MG TAB PO SCH (23:47)
[2020-01-07] MEDS: ATORVASTATIN 20 MG TAB PO SCH (23:47)
[2020-01-08] MEDS: SODIUM CHLORIDE 0.9% 1,000 ML IV SCH ×2 (00:50→15:47)
[2020-01-08 04:01] LABS: Cholesterol 166 mg/dL (< 200)
[2020-01-08 04:04] LABS: HDL Cholesterol 48 mg/dL (40-59); LDL Cholesterol 101 mg/dL (< 100); Triglycerides 134 mg/dL (< 150)
[2020-01-08 04:54] LABS: INR 1.14 (0.9-1.15)
[2020-01-08 10:12] LABS: INR 1.09 (0.9-1.15); Partial Thromboplastin Time 47.3 sec (23.0-31.2)
[2020-01-08] MEDS: traMADol HCL 50 MG TAB PO PRN (10:20)
[2020-01-08] MEDS: METOPROLOL TARTRATE 25 MG TAB PO SCH ×3 (10:21→22:20)
[2020-01-08] MEDS: ASPirin 81 mg TAB PO SCH (10:21)
[2020-01-08] MEDS: NIFEdipine ER 30 MG TAB PO SCH (10:22)
[2020-01-08] MEDS: NITROGLYCERIN 0.2MG/HR TOPICAL PATCH TD SCH (10:23)
[2020-01-08] MEDS ORDERED: HEPARIN DRIP/D5W 100UNITS/ML 250 ML IV SCH (10:30)
[2020-01-08 19:22] LABS: INR 1.07 (0.9-1.15); Partial Thromboplastin Time 51.9 sec (23.0-31.2)
[2020-01-08] MEDS: ATORVASTATIN 20 MG TAB PO SCH (22:19)
[2020-01-08] MEDS: FAMOTIDINE 20 MG TAB PO SCH (22:19)
[2020-01-09 01:06] LABS: INR 1.13 (0.9-1.15); Partial Thromboplastin Time 44.2 sec (23.0-31.2)
[2020-01-09] MEDS: SODIUM CHLORIDE 0.9% 1,000 ML IV SCH ×2 (03:30→16:56)
[2020-01-09 06:28] LABS: Basophils # (auto) 0 10 ^3/uL (0-0.2); Basophils % (auto) 1.2 % (0.0-2.0); Eosinophils # (auto) 0.2 10 ^3/uL (0-0.8); Eosinophils % (auto) 6.2 % (0.0-7.0); Hematocrit 39.2 % (41.0-53.0); Hemoglobin 13.5 g/dL (13.5-17.5); Lymphocytes # (auto) 1.1 10 ^3/uL (0.4-5.4); Lymphocytes % (auto) 29.4 % (10.0-50.0); Mean Corpuscular Hemoglobin 33.1 pg (28.0-32.0); Mean Corpuscular Hgb Conc. 34.4 g/dL (32.0-36.0); Mean Corpuscular Volume 96.4 fL (80.0-100.0); Monocytes # (auto) 0.4 10 ^3/uL (0-1.3); Monocytes % (auto) 9.5 % (0.0-12.0); Neutrophils # (auto) 2.1 10 ^3/uL (1.6-8.6); Neutrophils % (auto) 53.7 % (37.0-80.0); Platelet Count (auto) 146 10^3/uL (140-450); Red Blood Cells 4.07 10^6/uL (4.5-5.90); Red Cell Distribution Width 15.4 % (11.8-14.3); White Blood Cell 3.9 10^3/uL (4.4-10.8)
[2020-01-09 06:41] LABS: INR 1.09 (0.9-1.15); Partial Thromboplastin Time 66.6 sec (23.0-31.2)
[2020-01-09 06:47] LABS: Calcium 8.9 mg/dL (8.5-10.1); Potassium 3.6 mmol/L (3.5-5.1)
[2020-01-09 06:55] LABS: Albumin 3.3 g/dL (3.4-5.0); BUN/Creatinine Ratio 15.7; Bilirubin, Total 0.9 mg/dL (0.2-1.0); Total Protein 6.5 g/dL (6.4-8.2)
[2020-01-09] MEDS ORDERED: IOHEXOL 350 MG/ML 100ML IJ ONE ×2 (09:34→11:07)
[2020-01-09] MEDS ORDERED: LIDOCAINE 2%HCL (LOCAL ANESTH.) INJ 20ML MDV ONE (09:34)
[2020-01-09] MEDS ORDERED: ANGIOMAX 250 MG VIAL IV ONE ×2 (09:48→11:39)
[2020-01-09] MEDS ORDERED: fentaNYL CITRATE 100 MCG/2 ML VL ONE (09:48)
[2020-01-09] MEDS ORDERED: MIDAZOLAM HCL 1MG/1ML-2 ML VIAL ONE (09:48)
[2020-01-09] MEDS: ASPirin 81 mg TAB PO SCH (10:00)
[2020-01-09] MEDS: NITROGLYCERIN 0.2MG/HR TOPICAL PATCH TD SCH (10:00)
[2020-01-09] MEDS ORDERED: SODIUM CHL 0.9% 50 ML ONE ×2 (10:30→11:39)
[2020-01-09] MEDS ORDERED: TICAGRELOR 90 MG TAB ONE (11:11)
[2020-01-09] MEDS ORDERED: ASPirin 81 mg TAB ONE (11:14)
[2020-01-09] MEDS ORDERED: MORPHINE SULF INJ 2 MG/ML SYRINGE 1ML ONE (12:58)
[2020-01-09 13:15] VITALS: BP 154/85
[2020-01-09] MEDS ORDERED: SODIUM CHLORIDE 0.9% 1,000 ML IV SCH (13:15)
[2020-01-09] MEDS: MORPHINE SULF INJ 2 MG/ML SYRINGE 1ML IV PRN (18:26)
[2020-01-09] MEDS: NIFEdipine ER 30 MG TAB PO SCH (18:26)
[2020-01-09] MEDS: FAMOTIDINE 20 MG TAB PO SCH (21:08)
[2020-01-09] MEDS: ATORVASTATIN 20 MG TAB PO SCH (21:08)
[2020-01-09] MEDS: METOPROLOL TARTRATE 25 MG TAB PO SCH (21:09)
[2020-01-09 22:00] VITALS: BP 136/70
[2020-01-10] MEDS: MORPHINE SULF INJ 2 MG/ML SYRINGE 1ML IV PRN (00:22)
[2020-01-10 05:00] VITALS: BP 138/73
[2020-01-10 05:21] LABS: Basophils # (auto) 0 10 ^3/uL (0-0.2); Basophils % (auto) 0.8 % (0.0-2.0); Eosinophils # (auto) 0.1 10 ^3/uL (0-0.8); Eosinophils % (auto) 1.3 % (0.0-7.0); Hematocrit 39.4 % (41.0-53.0); Hemoglobin 13.3 g/dL (13.5-17.5); Lymphocytes # (auto) 0.8 10 ^3/uL (0.4-5.4); Lymphocytes % (auto) 18.6 % (10.0-50.0); Mean Corpuscular Hemoglobin 32.5 pg (28.0-32.0); Mean Corpuscular Hgb Conc. 33.7 g/dL (32.0-36.0); Mean Corpuscular Volume 96.7 fL (80.0-100.0); Monocytes # (auto) 0.5 10 ^3/uL (0-1.3); Monocytes % (auto) 12.4 % (0.0-12.0); Neutrophils # (auto) 2.8 10 ^3/uL (1.6-8.6); Neutrophils % (auto) 66.9 % (37.0-80.0); Nucleated Red Blood Cells % 0.1 %; Platelet Count (auto) 135 10^3/uL (140-450); Red Blood Cells 4.07 10^6/uL (4.5-5.90); Red Cell Distribution Width 15.4 % (11.8-14.3); White Blood Cell 4.1 10^3/uL (4.4-10.8)
[2020-01-10 05:43] LABS: Calcium 9.1 mg/dL (8.5-10.1); Potassium 3.4 mmol/L (3.5-5.1)
[2020-01-10 05:45] LABS: BUN/Creatinine Ratio 12.1
[2020-01-10] MEDS: SODIUM CHLORIDE 0.9% 1,000 ML IV SCH ×2 (06:01→20:30)
[2020-01-10] MEDS ORDERED: POTASSIUM CHL 20 Meq TABLET PO ONE (07:45)
[2020-01-10 09:39] VITALS: BP 105/69
[2020-01-10] MEDS: NITROGLYCERIN 0.2MG/HR TOPICAL PATCH TD SCH (10:00)
[2020-01-10] MEDS: NIFEdipine ER 30 MG TAB PO SCH (10:00)
[2020-01-10] MEDS: ASPirin 81 mg TAB PO SCH (10:15)
[2020-01-10] MEDS: METOPROLOL TARTRATE 25 MG TAB PO SCH ×2 (10:26→21:41)
[2020-01-10] MEDS ORDERED: CLOPIDOGREL BISULFATE 75 MG TAB PO ONE (10:30)
[2020-01-10 13:00] VITALS: BP 123/73
[2020-01-10 17:29] VITALS: BP 136/75
[2020-01-10] MEDS: traMADol HCL 50 MG TAB PO PRN (18:37)
[2020-01-10] MEDS: ATORVASTATIN 20 MG TAB PO SCH (21:40)
[2020-01-10] MEDS: FAMOTIDINE 20 MG TAB PO SCH (21:41)
[2020-01-10 22:00] VITALS: BP 133/76
[2020-01-11 05:00] VITALS: BP 133/70
[2020-01-11 07:10] LABS: Basophils # (auto) 0 10 ^3/uL (0-0.2); Basophils % (auto) 0.9 % (0.0-2.0); Eosinophils # (auto) 0.1 10 ^3/uL (0-0.8); Eosinophils % (auto) 4.8 % (0.0-7.0); Hematocrit 34.9 % (41.0-53.0); Lymphocytes # (auto) 0.2 10 ^3/uL (0.4-5.4); Lymphocytes % (auto) 7.7 % (10.0-50.0); Mean Corpuscular Hgb Conc. 34.3 g/dL (32.0-36.0); Mean Corpuscular Volume 96.2 fL (80.0-100.0); Monocytes # (auto) 0.2 10 ^3/uL (0-1.3); Monocytes % (auto) 7.8 % (0.0-12.0); Neutrophils # (auto) 1.9 10 ^3/uL (1.6-8.6); Neutrophils % (auto) 78.8 % (37.0-80.0); Nucleated Red Blood Cells % 0.1 %; Platelet Count (auto) 121 10^3/uL (140-450); Red Blood Cells 3.63 10^6/uL (4.5-5.90); White Blood Cell 2.5 10^3/uL (4.4-10.8)
[2020-01-11 07:16] LABS: Potassium 3.4 mmol/L (3.5-5.1)
[2020-01-11 07:23] LABS: BUN/Creatinine Ratio 16.2; Calcium 8.5 mg/dL (8.5-10.1)
[2020-01-11 08:50] VITALS: BP 130/74
[2020-01-11] MEDS ORDERED: CLOPIDOGREL BISULFATE 75 MG TAB PO SCH (10:00)
[2020-01-11] MEDS: NITROGLYCERIN 0.2MG/HR TOPICAL PATCH TD SCH (10:00)
[2020-01-11] MEDS: METOPROLOL TARTRATE 25 MG TAB PO SCH (10:16)
[2020-01-11] MEDS: NIFEdipine ER 30 MG TAB PO SCH (10:16)
[2020-01-11] MEDS: ASPirin 81 mg TAB PO SCH (10:16)
[2020-01-11] MEDS: SODIUM CHLORIDE 0.9% 1,000 ML IV SCH (10:17)
[2020-01-11] MEDS: traMADol HCL 50 MG TAB PO PRN (11:19)
[2020-01-11 12:41] VITALS: BP 136/72
[2020-01-11 16:52] VITALS: BP 102/60
== END 2020-01-11 16:45 | disposition home health service (06) | DRG 246 ==
LOC: EDBD 07:53 → ER 07:53 → TELE 07:54 → TELE-WESTW 01-09 10:01
PROVIDERS: ADMIT Internal Medicine; ATTEND Family Medicine
PROC: B2111ZZ Fluoroscopy of Multiple Coronary Arteries using Low Osmolar Contrast (ICD-10-PCS; principal; 2020-01-09)
PROC: 027135Z Dilation of Coronary Artery, Two Arteries with Two Drug-eluting Intraluminal Devices, Percutaneous Approach (ICD-10-PCS; 2020-01-09)
PROC: 02703ZZ Dilation of Coronary Artery, One Artery, Percutaneous Approach (ICD-10-PCS; 2020-01-09)
PROC: 4A033BC Measurement of Arterial Pressure, Coronary, Percutaneous Approach (ICD-10-PCS; 2020-01-09)
DX: I21.4 Non-ST elevation (NSTEMI) myocardial infarction (principal); G93.41 Metabolic encephalopathy; D72.819 Decreased white blood cell count, unspecified; N18.30 Chronic kidney disease, stage 3 unspecified; M19.90 Unspecified osteoarthritis, unspecified site; E78.00 Pure hypercholesterolemia, unspecified; I12.9 Hypertensive chronic kidney disease with stage 1 through stage 4 chronic kidney disease, or unspecified chronic kidney disease; E78.5 Hyperlipidemia, unspecified; Z82.49 Family history of ischemic heart disease and other diseases of the circulatory system
CPT/HCPCS: 36415; 71045; 80048; 80053; 80061; 84443; 84484; 85025; 85610; 85730; 92920; 92928; 93454; 93571; 96365; 96372; 99152; 99153; C1874; C1887; G0378; J2250

== ENCOUNTER → 2020-03-07 | Outpatient (CLI) | payer MEDICARE ==
[~2020-03-07] MED LIST changes: +CHLO50TA PO; +FINA5TAB4 PO; -HYDR12.55 PO; +LATA0.0020 EACHEYE; +[UNRECOGNIZED DRUG - CODE] EACHEYE
[2020-03-07 16:22] LABS: Albumin 3.8 g/dL (3.4-5.0); Calcium 9.5 mg/dL (8.5-10.1); Magnesium 2.5 mg/dL (1.6-2.6); Potassium 4.2 mmol/L (3.5-5.1)
[2020-03-07 16:30] LABS: Bilirubin, Total 0.5 mg/dL (0.2-1.0); Total Protein 7.9 g/dL (6.4-8.2)
== END | disposition home or self-care (01) ==
LOC: Rad HDHVI 11:26
PROVIDERS: ATTEND Internal Medicine Cardiovascular Disease
DX: M16.12 Unilateral primary osteoarthritis, left hip (principal); M25.552 Pain in left hip; I49.9 Cardiac arrhythmia, unspecified; M41.86 Other forms of scoliosis, lumbar region; M43.8X6 Other specified deforming dorsopathies, lumbar region; I70.90 Unspecified atherosclerosis; I10 Essential (primary) hypertension
CPT/HCPCS: 36415; 80053; 83735

== ENCOUNTER → 2020-03-18 | Outpatient (CLI) | payer MEDICARE ==
[~2020-03-18] MED LIST changes: +ASPI1TAB19 PO; +CLOP75TA28 PO; +GING500C3 PO; +LATA0.0019 EACHEYE; +NIFE1TAB31 PO; +POTA-180 PO; +TIM05OS EACHEYE; +TURM500C3 PO; +[UNRECOGNIZED DRUG - CODE] EACHEYE
[2020-03-18 10:18] VITALS: BP 158/96
[2020-03-18 10:42] VITALS: BP 134/76
[2020-03-18 12:18] LABS: Basophils # (auto) 0 10 ^3/uL (0-0.2); Basophils % (auto) 1.7 % (0.0-2.0); Eosinophils # (auto) 0.1 10 ^3/uL (0-0.8); Eosinophils % (auto) 5.1 % (0.0-7.0); Hemoglobin 13.2 g/dL (13.5-17.5); Lymphocytes # (auto) 0.8 10 ^3/uL (0.4-5.4); Lymphocytes % (auto) 27.9 % (10.0-50.0); Mean Corpuscular Hemoglobin 33.7 pg (28.0-32.0); Mean Corpuscular Hgb Conc. 34.7 g/dL (32.0-36.0); Mean Corpuscular Volume 97.1 fL (80.0-100.0); Monocytes # (auto) 0.3 10 ^3/uL (0-1.3); Monocytes % (auto) 12.5 % (0.0-12.0); Neutrophils # (auto) 1.5 10 ^3/uL (1.6-8.6); Neutrophils % (auto) 52.8 % (37.0-80.0); Nucleated Red Blood Cells % 0.1 %; Platelet Count (auto) 199 10^3/uL (140-450); Red Blood Cells 3.92 10^6/uL (4.5-5.90); Red Cell Distribution Width 14.6 % (11.8-14.3); White Blood Cell 2.8 10^3/uL (4.4-10.8)
[2020-03-18 12:21] LABS: INR 1.03 (0.9-1.15); Partial Thromboplastin Time 26.2 sec (23.0-31.2)
[2020-03-18 12:29] LABS: Potassium 4.1 mmol/L (3.5-5.1)
[2020-03-18 12:36] LABS: BUN/Creatinine Ratio 18.7; Calcium 9.4 mg/dL (8.5-10.1)
== END | disposition home or self-care (01) ==
LOC: Rad HDHVI 09:58
PROVIDERS: ATTEND Internal Medicine Cardiovascular Disease
DX: Z01.812 Encounter for preprocedural laboratory examination (principal); I70.0 Atherosclerosis of aorta; M41.85 Other forms of scoliosis, thoracolumbar region; M47.815 Spondylosis without myelopathy or radiculopathy, thoracolumbar region; I50.9 Heart failure, unspecified
CPT/HCPCS: 36415; 71046; 80048; 85025; 85610; 85730; 93005; G0463

== ENCOUNTER 2020-03-24 07:21 | Day surgery (SDC) | payer MEDICARE ==
[~2020-03-24] VITALS: Ht 172.7 cm; Wt 74.8 kg
[~2020-03-24 07:21] MED LIST changes: -CHLO50TA PO; -LATA0.0020 EACHEYE; -POTA10TA51 PO; -TIM05OS EACHEYE; -[UNRECOGNIZED DRUG - CODE] EACHEYE
[2020-03-24] MEDS ORDERED: HEPARIN IN NS 1000Units/500mL 0 ML ONE (10:54)
[2020-03-24] MEDS ORDERED: IOHEXOL 350 MG/ML 100ML IJ ONE (10:54)
[2020-03-24] MEDS ORDERED: LIDOCAINE 2%HCL (LOCAL ANESTH.) INJ 20ML MDV ONE ×2 (10:54→11:30)
[2020-03-24] MEDS ORDERED: fentaNYL CITRATE 100 MCG/2 ML VL ONE (11:30)
[2020-03-24] MEDS ORDERED: SODIUM CHL 0.9% 50 ML ONE (11:30)
[2020-03-24] MEDS ORDERED: ANGIOMAX 250 MG VIAL IV ONE (11:30)
[2020-03-24] MEDS ORDERED: MIDAZOLAM HCL 1MG/1ML-2 ML VIAL ONE (11:30)
[2020-03-24] MEDS ORDERED: IODIXANOL 320MG/ML 100ML BTL IV ONE (11:30)
[2020-03-24] MEDS ORDERED: ONDANSETRON HCL 4 MG/2 ML VIAL IV PRN (12:30)
[2020-03-24] MEDS ORDERED: HYDROcodone-ACET 5/325MG TAB PO PRN (12:30)
[2020-03-24] MEDS ORDERED: ACETAMINOPHEN 500 MG TAB PO PRN (12:30)
== END 2020-03-24 15:16 | disposition home or self-care (01) ==
LOC: CATH 07:21
PROVIDERS: ATTEND Internal Medicine Cardiovascular Disease
DX: I25.10 Atherosclerotic heart disease of native coronary artery without angina pectoris (principal); I25.2 Old myocardial infarction; I10 Essential (primary) hypertension; H40.9 Unspecified glaucoma; E78.00 Pure hypercholesterolemia, unspecified; N40.0 Benign prostatic hyperplasia without lower urinary tract symptoms; E78.5 Hyperlipidemia, unspecified; Z20.822 Contact with and (suspected) exposure to COVID-19; Z98.890 Other specified postprocedural states; Z79.899 Other long term (current) drug therapy
CPT/HCPCS: 93454; C1725; C1760; C1769; C1874; C1887; C1894; C9600; J0583; J1644; J2250; J3010; J7030; Q9967; U0003; 99152; 99153

== ENCOUNTER → 2020-04-26 | Outpatient (CLI) | payer MEDICARE | END | disposition home or self-care (01) | LOC: Rad HDHVI 09:59 | PROVIDERS: ATTEND Internal Medicine Cardiovascular Disease | DX: I21.9 Acute myocardial infarction, unspecified (principal); R06.02 Shortness of breath | CPT/HCPCS: 93306 ==

== ENCOUNTER 2021-03-31 12:39 | Inpatient (IN) | payer MEDICARE ==
[~2021-03-31] VITALS: Ht 170.2 cm; Wt 80.4 kg
[2021-03-31 16:12] LABS: INR 1.04 (0.9-1.15); Partial Thromboplastin Time 27.7 sec (23.6-33.0)
[2021-03-31 16:18] LABS: Potassium 3.8 mmol/L (3.5-5.1)
[2021-03-31 16:26] LABS: Basophils # (auto) 0 10 ^3/uL (0-0.2); Basophils % (auto) 1.4 % (0.0-2.0); Eosinophils # (auto) 0.1 10 ^3/uL (0-0.8); Eosinophils % (auto) 4.5 % (0.0-7.0); Hematocrit 38.3 % (41.0-53.0); Hemoglobin 12.9 g/dL (13.5-17.5); Lymphocytes % (auto) 32.3 % (10.0-50.0); Mean Corpuscular Hemoglobin 32.1 pg (28.0-32.0); Mean Corpuscular Hgb Conc. 33.6 g/dL (32.0-36.0); Mean Corpuscular Volume 95.5 fL (80.0-100.0); Monocytes # (auto) 0.3 10 ^3/uL (0-1.3); Monocytes % (auto) 11.3 % (0.0-12.0); Neutrophils # (auto) 1.5 10 ^3/uL (1.6-8.6); Neutrophils % (auto) 50.5 % (37.0-80.0); Nucleated Red Blood Cells % 0.4 %; Red Blood Cells 4.01 10^6/uL (4.5-5.90); Red Cell Distribution Width 15.4 % (11.8-14.3)
[2021-03-31 16:29] LABS: Albumin 3.8 g/dL (3.4-5.0); BUN/Creatinine Ratio 26.4; Bilirubin, Total 0.4 mg/dL (0.2-1.0); Calcium 9.4 mg/dL (8.5-10.1); Magnesium 3.8 mg/dL (1.6-2.6); Total Protein 7.8 g/dL (6.4-8.2)
[2021-03-31 16:54] LABS: Urine Bacteria NONE SEEN /hpf (None Seen); Urine Blood Negative /uL (Negative); Urine Specific Gravity 1.015 (1.001-1.035); Urine WBC <1 /hpf (0 - 3)
[2021-04-01] MEDS ORDERED: MORPHINE SULFATE INJECTION 2 MG/ML SYRG IV PRN (00:45)
[2021-04-01] MEDS ORDERED: ONDANSETRON HCL 4 MG/2 ML VIAL IV PRN (00:45)
[2021-04-01] MEDS ORDERED: DOCUSATE SOD 100 MG CAP PO PRN (00:45)
[2021-04-01] MEDS ORDERED: NITROGLYCERIN 0.4 MG SL TAB SL PRN (00:45)
[2021-04-01] MEDS ORDERED: ACETAMINOPHEN 325 MG TAB PO PRN (00:45)
[2021-04-01 08:15] LABS: Basophils # (auto) 0 10 ^3/uL (0-0.2); Basophils % (auto) 1.4 % (0.0-2.0); Eosinophils # (auto) 0.2 10 ^3/uL (0-0.8); Hematocrit 35.9 % (41.0-53.0); Hemoglobin 12.2 g/dL (13.5-17.5); Lymphocytes # (auto) 1.1 10 ^3/uL (0.4-5.4); Lymphocytes % (auto) 37.8 % (10.0-50.0); Mean Corpuscular Hgb Conc. 33.9 g/dL (32.0-36.0); Mean Corpuscular Volume 94.5 fL (80.0-100.0); Monocytes # (auto) 0.4 10 ^3/uL (0-1.3); Monocytes % (auto) 11.9 % (0.0-12.0); Neutrophils # (auto) 1.3 10 ^3/uL (1.6-8.6); Neutrophils % (auto) 43.9 % (37.0-80.0); Red Cell Distribution Width 15.3 % (11.8-14.3)
[2021-04-01] MEDS: SODIUM CHLOR 0.9% PF (SALINE LOCK) 10ML VIAL/SYR IV SCH ×3 (08:34→21:02)
[2021-04-01] MEDS: LEVOTHYROXINE SODIUM 50 MCG TAB PO SCH (08:34)
[2021-04-01 08:36] LABS: Potassium 3.1 mmol/L (3.5-5.1)
[2021-04-01 08:59] LABS: Albumin 3.4 g/dL (3.4-5.0); BUN/Creatinine Ratio 33.1; Bilirubin, Total 0.6 mg/dL (0.2-1.0); Calcium 8.9 mg/dL (8.5-10.1); Total Protein 7.2 g/dL (6.4-8.2)
[2021-04-01] MEDS ORDERED: MULTIPLE VITAMIN TAB PO SCH (10:00)
[2021-04-01] MEDS: ASCORBIC ACID 500 MG TAB PO SCH ×2 (10:44→21:04)
[2021-04-01] MEDS: FINASTERIDE 5 MG TAB PO SCH (10:44)
[2021-04-01] MEDS: ASPirin 81 mg TAB PO SCH (10:44)
[2021-04-01] MEDS: HYDROcodone-ACET 5/325MG TAB PO PRN ×2 (10:44→18:23)
[2021-04-01] MEDS: ZINC SULFATE 220mg CAP or TAB PO SCH (10:44)
[2021-04-01] MEDS ORDERED: NIFEdipine ER 30 MG TAB PO ONE (12:45)
[2021-04-01] MEDS ORDERED: POTASSIUM EFFERVESENT TAB 25 MEQ PO ONE (13:00)
[2021-04-01] MEDS ORDERED: SODIUM CHLORIDE 0.9% 1,000 ML IV SCH (15:15)
[2021-04-01] MEDS ORDERED: CALCIUM W/VIT D (600MG/400IU) TAB PO ONE (16:15)
[2021-04-01] MEDS ORDERED: POTASSIUM CHL 10MEQ/50ML 50 ML IV ONE (16:15)
[2021-04-01 16:20] VITALS: BP 153/97
[2021-04-01] MEDS: SOD CHL 0.9%/ KCL 40MEQ 1,000 ML IV SCH ×2 (18:12→21:08)
[2021-04-01] MEDS: NIFEdipine ER 30 MG TAB PO SCH (19:04)
[2021-04-01] MEDS: ATORVASTATIN 20 MG TAB PO SCH (21:03)
[2021-04-01] MEDS: POTASSIUM EFFERVESENT TAB 25 MEQ PO SCH (21:03)
[2021-04-01 22:00] VITALS: BP 157/90
[2021-04-02 05:00] VITALS: BP 141/80
[2021-04-02 05:54] LABS: Basophils # (auto) 0 10 ^3/uL (0-0.2); Basophils % (auto) 1.1 % (0.0-2.0); Eosinophils # (auto) 0.1 10 ^3/uL (0-0.8); Hematocrit 35.9 % (41.0-53.0); Hemoglobin 12.1 g/dL (13.5-17.5); Lymphocytes # (auto) 1.1 10 ^3/uL (0.4-5.4); Lymphocytes % (auto) 35.6 % (10.0-50.0); Mean Corpuscular Hemoglobin 31.7 pg (28.0-32.0); Mean Corpuscular Hgb Conc. 33.7 g/dL (32.0-36.0); Mean Corpuscular Volume 94.1 fL (80.0-100.0); Monocytes # (auto) 0.4 10 ^3/uL (0-1.3); Monocytes % (auto) 11.8 % (0.0-12.0); Neutrophils # (auto) 1.5 10 ^3/uL (1.6-8.6); Neutrophils % (auto) 47.5 % (37.0-80.0); Nucleated Red Blood Cells % 0.2 %; Red Blood Cells 3.81 10^6/uL (4.5-5.90); Red Cell Distribution Width 15.5 % (11.8-14.3); White Blood Cell 3.2 10^3/uL (4.4-10.8)
[2021-04-02 06:03] LABS: Potassium 3.4 mmol/L (3.5-5.1)
[2021-04-02] MEDS: SODIUM CHLOR 0.9% PF (SALINE LOCK) 10ML VIAL/SYR IV SCH (06:04)
[2021-04-02 06:05] LABS: Magnesium 2.3 mg/dL (1.6-2.6); Phosphorus 2.8 mg/dL (2.5-4.90)
[2021-04-02] MEDS: NIFEdipine ER 30 MG TAB PO SCH ×2 (06:06→18:00)
[2021-04-02] MEDS: LEVOTHYROXINE SODIUM 50 MCG TAB PO SCH (06:06)
[2021-04-02 06:31] LABS: Albumin 3.3 g/dL (3.4-5.0); BUN/Creatinine Ratio 30.8; Bilirubin, Total 0.5 mg/dL (0.2-1.0); Calcium 8.8 mg/dL (8.5-10.1); Total Protein 6.9 g/dL (6.4-8.2)
[2021-04-02] MEDS ORDERED: POTASSIUM CHL 20 Meq TABLET PO ONE (06:45)
[2021-04-02 09:00] VITALS: BP 126/72
[2021-04-02] MEDS: ASPirin 81 mg TAB PO SCH (09:34)
[2021-04-02] MEDS: CALCIUM W/VIT D (600MG/400IU) TAB PO SCH ×2 (09:34→18:00)
[2021-04-02] MEDS: ZINC SULFATE 220mg CAP or TAB PO SCH (09:35)
[2021-04-02] MEDS: POTASSIUM EFFERVESENT TAB 25 MEQ PO SCH (09:35)
[2021-04-02] MEDS: POTASSIUM CHL 20 Meq TABLET PO SCH ×2 (09:36→22:13)
[2021-04-02] MEDS: MULTIPLE VITAMINS W/ MINERALS TAB PO SCH (09:39)
[2021-04-02] MEDS: FINASTERIDE 5 MG TAB PO SCH (09:42)
[2021-04-02] MEDS: ASCORBIC ACID 500 MG TAB PO SCH ×2 (09:42→22:14)
[2021-04-02] MEDS: HYDROcodone-ACET 5/325MG TAB PO PRN ×2 (12:04→17:04)
[2021-04-02 13:00] VITALS: BP 127/68
[2021-04-02] MEDS ORDERED: POTASSIUM CHL 10MEQ/50ML 50 ML IV ONE ×2 (15:00→15:15)
[2021-04-02] MEDS ORDERED: SODIUM CHLORIDE 0.9% 1,000 ML IV SCH (15:15)
[2021-04-02 17:00] VITALS: BP 142/79
[2021-04-02 20:00] VITALS: BP 136/74
[2021-04-02 22:00] VITALS: BP 136/74
[2021-04-02] MEDS: ATORVASTATIN 20 MG TAB PO SCH (22:13)
[2021-04-03 05:00] VITALS: BP 147/86
[2021-04-03 05:25] LABS: Basophils # (auto) 0 10 ^3/uL (0-0.2); Basophils % (auto) 1.1 % (0.0-2.0); Eosinophils # (auto) 0.1 10 ^3/uL (0-0.8); Eosinophils % (auto) 3.5 % (0.0-7.0); Hematocrit 34.4 % (41.0-53.0); Hemoglobin 11.6 g/dL (13.5-17.5); Lymphocytes # (auto) 0.9 10 ^3/uL (0.4-5.4); Lymphocytes % (auto) 24.1 % (10.0-50.0); Mean Corpuscular Hgb Conc. 33.8 g/dL (32.0-36.0); Mean Corpuscular Volume 94.7 fL (80.0-100.0); Monocytes # (auto) 0.4 10 ^3/uL (0-1.3); Monocytes % (auto) 10.8 % (0.0-12.0); Neutrophils # (auto) 2.3 10 ^3/uL (1.6-8.6); Neutrophils % (auto) 60.5 % (37.0-80.0); Nucleated Red Blood Cells % 0.1 %; Red Blood Cells 3.63 10^6/uL (4.5-5.90); Red Cell Distribution Width 15.4 % (11.8-14.3); White Blood Cell 3.8 10^3/uL (4.4-10.8)
[2021-04-03 05:30] LABS: INR 1.06 (0.9-1.15); Partial Thromboplastin Time 27.5 sec (23.6-33.0)
[2021-04-03 05:33] LABS: Albumin 3.3 g/dL (3.4-5.0); BUN/Creatinine Ratio 26.6; Bilirubin, Total 0.5 mg/dL (0.2-1.0); Calcium 8.7 mg/dL (8.5-10.1); Magnesium 2.2 mg/dL (1.6-2.6); Phosphorus 2.6 mg/dL (2.5-4.90); Total Protein 6.8 g/dL (6.4-8.2)
[2021-04-03] MEDS: LEVOTHYROXINE SODIUM 50 MCG TAB PO SCH (06:20)
[2021-04-03] MEDS: NIFEdipine ER 30 MG TAB PO SCH (06:20)
[2021-04-03 09:00] VITALS: BP 139/70
[2021-04-03] MEDS ORDERED: IOHEXOL 350 MG/ML 100ML IJ ONE ×2 (09:14→10:47)
[2021-04-03] MEDS ORDERED: ENOXAPARIN SOD 40 MG/0.4 ML SYRINGE SC SCH (10:00)
[2021-04-03] MEDS: FINASTERIDE 5 MG TAB PO SCH (10:15)
[2021-04-03] MEDS: ASCORBIC ACID 500 MG TAB PO SCH (10:15)
[2021-04-03] MEDS: CALCIUM W/VIT D (600MG/400IU) TAB PO SCH (10:16)
[2021-04-03] MEDS: ZINC SULFATE 220mg CAP or TAB PO SCH (10:16)
[2021-04-03] MEDS: MULTIPLE VITAMINS W/ MINERALS TAB PO SCH (10:16)
[2021-04-03] MEDS: ASPirin 81 mg TAB PO SCH (10:16)
[2021-04-03] MEDS: POTASSIUM CHL 20 Meq TABLET PO SCH (10:16)
[2021-04-03] MEDS: HYDROcodone-ACET 5/325MG TAB PO PRN (10:16)
[2021-04-03 12:59] VITALS: BP 131/77
[2021-04-03 13:00] VITALS: BP 131/77
== END 2021-04-03 13:50 | disposition home health service (06) | DRG 73 ==
LOC: ER 12:39 → OVERFLOW 04-01 00:43 → CENTRAL 04-01 16:16
PROVIDERS: ADMIT Nurse Practitioner Family; ATTEND Internal Medicine
DX: G90.9 Disorder of the autonomic nervous system, unspecified (principal); R53.2 Functional quadriplegia; N17.0 Acute kidney failure with tubular necrosis; R29.6 Repeated falls; D72.819 Decreased white blood cell count, unspecified; E83.41 Hypermagnesemia; N18.2 Chronic kidney disease, stage 2 (mild); E87.6 Hypokalemia; I12.9 Hypertensive chronic kidney disease with stage 1 through stage 4 chronic kidney disease, or unspecified chronic kidney disease; I25.10 Atherosclerotic heart disease of native coronary artery without angina pectoris; M19.90 Unspecified osteoarthritis, unspecified site; N40.0 Benign prostatic hyperplasia without lower urinary tract symptoms; R26.81 Unsteadiness on feet; M25.559 Pain in unspecified hip; E78.5 Hyperlipidemia, unspecified; E03.9 Hypothyroidism, unspecified; R55 Syncope and collapse; Z98.61 Coronary angioplasty status; I25.2 Old myocardial infarction; Z82.49 Family history of ischemic heart disease and other diseases of the circulatory system; Z90.49 Acquired absence of other specified parts of digestive tract; Z91.81 History of falling
CPT/HCPCS: 36415; 70450; 71045; 71275; 72125; 72170; 80053; 80061; 81001; 82306; 83735; 83880; 84100; 84443; 84484; 85025; 85379; 85610; 85730; 86850; 86900; 86901; 87426; 93005; 96360; 97163; G0378; J2405

== ENCOUNTER 2021-05-06 04:54 | Emergency (ER) | payer MEDICARE ==
[~2021-05-06] VITALS: Ht 170.2 cm; Wt 77.1 kg
[2021-05-06] MEDS ORDERED: LIDOCAINE VISCOUS 2% 15ML UD PO ONE (05:15)
[2021-05-06] MEDS ORDERED: ALUM & MAG HYDROX-SIMETH LIQ(MAALOX) 30 ML PO ONE (05:15)
[2021-05-06 06:02] LABS: Basophils # (auto) 0 10 ^3/uL (0-0.2); Basophils % (auto) 0.6 % (0.0-2.0); Eosinophils # (auto) 0.1 10 ^3/uL (0-0.8); Eosinophils % (auto) 1.3 % (0.0-7.0); Hematocrit 29.8 % (41.0-53.0); Hemoglobin 10.3 g/dL (13.5-17.5); Lymphocytes # (auto) 0.6 10 ^3/uL (0.4-5.4); Mean Corpuscular Hemoglobin 32.4 pg (28.0-32.0); Mean Corpuscular Hgb Conc. 34.6 g/dL (32.0-36.0); Mean Corpuscular Volume 93.6 fL (80.0-100.0); Monocytes # (auto) 0.4 10 ^3/uL (0-1.3); Monocytes % (auto) 10.1 % (0.0-12.0); Neutrophils # (auto) 3.3 10 ^3/uL (1.6-8.6); Nucleated Red Blood Cells % 0.1 %; Red Blood Cells 3.18 10^6/uL (4.5-5.90); Red Cell Distribution Width 14.5 % (11.8-14.3); White Blood Cell 4.4 10^3/uL (4.4-10.8)
[2021-05-06 06:21] LABS: BUN/Creatinine Ratio 24.5; Calcium 8.8 mg/dL (8.5-10.1); Potassium 3.3 mmol/L (3.5-5.1)
[2021-05-06 06:26] LABS: Bilirubin, Total 0.4 mg/dL (0.2-1.0); Total Protein 6.6 g/dL (6.4-8.2)
[2021-05-06] MEDS ORDERED: SODIUM CHLORIDE 0.9% 1,000 ML IV ONE (09:00)
[2021-05-06 09:48] LABS: INR 1.05 (0.9-1.15); Partial Thromboplastin Time 26.8 sec (23.6-33.0)
[2021-05-06] MEDS ORDERED: SODIUM CHLORIDE 0.9% 500 ML IV ONE (13:45)
[2021-05-06 13:56] LABS: Urine Bacteria NONE SEEN /hpf (None Seen); Urine Blood Negative /uL (Negative); Urine Specific Gravity 1.014 (1.001-1.035); Urine WBC <1 /hpf (0 - 3)
[2021-05-06] MEDS ORDERED: IOHEXOL 350 MG/ML 100ML IJ ONE (14:09)
[2021-05-06 16:17] VITALS: BP 117/79
[2021-05-06] MEDS ORDERED: POTASSIUM CHL 20 Meq TABLET PO ONE (16:30)
== END 2021-05-06 16:51 | disposition hospice, home (50) ==
LOC: EDBD 04:54 → ER 04:54
DX: R07.89 Other chest pain (principal); E87.6 Hypokalemia; I25.10 Atherosclerotic heart disease of native coronary artery without angina pectoris; D53.9 Nutritional anemia, unspecified; K22.4 Dyskinesia of esophagus; R79.1 Abnormal coagulation profile; E46 Unspecified protein-calorie malnutrition; I25.2 Old myocardial infarction; E78.5 Hyperlipidemia, unspecified; I12.9 Hypertensive chronic kidney disease with stage 1 through stage 4 chronic kidney disease, or unspecified chronic kidney disease; N18.30 Chronic kidney disease, stage 3 unspecified; Z68.26 Body mass index [BMI] 26.0-26.9, adult; Z79.82 Long term (current) use of aspirin; Z79.01 Long term (current) use of anticoagulants; Z79.899 Other long term (current) drug therapy
CPT/HCPCS: 36415; 71045; 71275; 80053; 81001; 83735; 83880; 84443; 84484; 85025; 85379; 85610; 85730; 93005; 96360; 96361; 99285; J7030; J7040; Q9967